=== PATIENT | female | born 1945 | race Caucasian/White ===

== ENCOUNTER 2016-06-25 10:27 | Outpatient (CLI) | payer MEDICARE, OTHER | END 2016-06-25 10:28 | disposition home or self-care (01) | DX: K80.20 Calculus of gallbladder without cholecystitis without obstruction (principal) ==

== ENCOUNTER 2016-06-27 16:23 | Outpatient (CLI) | payer MEDICARE, OTHER | END 2016-06-27 16:24 | disposition home or self-care (01) | DX: K80.20 Calculus of gallbladder without cholecystitis without obstruction (principal) ==

== ENCOUNTER 2016-11-14 13:00 | Outpatient (CLI) | payer MEDICARE, OTHER ==
--- NOTE | 2016-11-16 08:25 | DEXA Report ---
DEXA SCAN: 11/14/2016 CLINICAL INDICATION: Postmenopausal. TECHNIQUE: Dual energy x-ray absorptiometry (DXA) was performed on a [employer] system. Regions measured are the AP spine, femoral neck, and, if needed, forearm. COMPARISON: None. In accordance with the International Society for Clinical Densitometry (ISCD) guidelines, data from previous exams may be reanalyzed using current recommendations and techniques. This is done to allow a more accurate basis for comparison with the current study. FINDINGS: The data for the lumbar spine is as follows: REGION BMD (g/cm/cm) T-SCORE Z-SCORE L1 0.868 -2.1 -0.7 L2 0.850 -2.9 -1.4 L3 0.968 -1.9 -0.4 L4 1.036 -1.4 0.2 TOTAL 0.945 -2.0 -0.4 NOTE: All evaluable vertebrae are used for classification. The data for the hip is as follows: REGION BMD (g/cm/cm) T-SCORE Z-SCORE Neck 0.792 -1.8 -0.2 TOTAL 0.860 -1.2 0.2 NOTE: The femoral neck or total proximal femur, whichever is lowest, is used for classification. IMPRESSION: THE WHO CLASSIFICATION BASED ON THE INTERNATIONAL REFERENCE STANDARD IS OSTEOPENIA. THE FRACTURE RISK IS INCREASED. RECOMMENDATION: Patients with diagnosis of osteoporosis or osteopenia should have regular bone mineral density assessment. For those eligible for Medicare, routine testing is allowed once every 2 years. Testing frequency can be increased for patients who have rapidly progressing disease or for those who are receiving medical therapy to restore bone mass. COMMENT: World Health Organization (WHO) definitions for osteoporosis and osteopenia: NORMAL BMD: T-score at -1.0 or higher, fracture risk is low. OSTEOPENIA BMD: T-score between -1.0 and -2.5, fracture risk is increased. OSTEOPOROSIS BMD: T-score at -2.5 or lower, fracture risk high. National Osteoporosis Foundation recommends: 1. Obtain adequate dietary calcium (at least 1200 mg per day) and vitamin D (400 -800 international units per day). 2. Participate, as appropriate, in regular weightbearing and muscle- strengthening exercise. 3. Avoid tobacco use and reduce alcohol and caffeine intake. 4. For more detailed information see the website at www.NOF.org. MTDD
== END 2016-11-14 13:01 | disposition home or self-care (01) ==
LOC: DI 13:00
PROVIDERS: ATTEND Family Medicine
DX: M85.89 Other specified disorders of bone density and structure, multiple sites (principal)
CPT/HCPCS: 77080

== ENCOUNTER 2016-11-17 10:29 | Outpatient (CLI) | payer MEDICARE, OTHER ==
--- NOTE | 2016-11-18 13:21 | Mammography Report ---
DIGITAL SCREENING MAMMOGRAM: 11/17/2016 CLINICAL INDICATION: A 71-year-old with family history of breast cancer, history of benign biopsy fo r screening. COMPARISON: 03/2015, 01/2014, 12/2012, 11/2011, 10/2010, 10/2009, 10/2008, 08/2007, 08/2006. TECHNIQUE: Routine CC and MLO projections were obtained of the breasts. FINDINGS: The breasts again demonstrate scattered fibroglandular densities bilaterally. A few punct ate, typically benign calcifications are present. No suspicious masses, clustered microcalcification s, or regions of architectural distortion are identified. IMPRESSION: BENIGN FINDINGS. RECOMMENDATION: Routine annual screening unless otherwise clinically indicated. BIRADS CATEGORY 2 - BENIGN FINDINGS. STANDARD QUALIFYING STATEMENTS 1. This examination was reviewed with the aid of Computer-Aided Detection (CAD). 2. A negative or benign imaging report should not delay biopsy if clinically suspicious findings are present. Consider surgical consultation if warranted. More than 5% of cancers are not identified by i maging. 3. Dense breasts may obscure an underlying neoplasm. JOB #: [id number] EXT JOB #:[id number]
== END 2016-11-17 10:30 | disposition home or self-care (01) ==
LOC: DI.N 10:29
PROVIDERS: ATTEND Family Medicine
DX: Z12.31 Encounter for screening mammogram for malignant neoplasm of breast (principal); Z80.3 Family history of malignant neoplasm of breast
CPT/HCPCS: 77067

== ENCOUNTER 2017-09-07 10:51 | Outpatient (CLI) | payer MEDICARE, OTHER ==
[2017-09-07 19:06] LABS: BASOPHILS % (AUTO) 1.1 %; EOSINOPHILS # (AUTO) 0.2 10^3/uL (0.0-0.7); EOSINOPHILS % (AUTO) 5.6 %; HGB - HEMOGLOBIN 13.6 g/dL (12.0-16.0); LYMPHOCYTES # (AUTO) 1.6 10^3/uL (1.5-3.5); LYMPHOCYTES % (AUTO) 36.8 %; MEAN CORPUSCULAR HEMOGLOBIN 30.7 pg (27.0-31.0); MEAN CORPUSCULAR HGB CONC 32.4 g/dL (32.0-36.0); MEAN CORPUSCULAR VOLUME 94.6 fL (81.0-99.0); MEAN PLATELET VOLUME 9.5 fL (7.9-10.8); MONOCYTES # (AUTO) 0.4 10^3/uL (0.0-1.0); MONOCYTES % (AUTO) 9.2 %; NEUTROPHILS # (AUTO) 2.1 10^3/uL (1.5-6.6); NEUTROPHILS % (AUTO) 47.3 %; PLT - PLATELET COUNT 212 10^3/uL (130-450); RED BLOOD COUNT 4.44 10^6/uL (4.20-5.40); RED CELL DISTRIBUTION WIDTH 14.6 % (12.0-15.0); WHITE BLOOD COUNT 4.4 x10^3/uL (4.8-10.8)
[2017-09-07 19:22] LABS: ALBUMIN 4.5 g/dL (3.2-5.5); ALBUMIN/GLOBULIN RATIO 1.7 (1.0-2.2); BILIRUBIN,TOTAL 0.8 mg/dL (0.2-1.0); CALCIUM 9.1 mg/dL (8.5-10.3); CREATININE 0.7 mg/dL (0.4-1.0); TOTAL PROTEIN 7.1 g/dL (6.7-8.2)
== END 2017-09-07 10:52 ==
LOC: LAB.WCP 10:51
PROVIDERS: ATTEND Family Medicine
DX: R19.7 Diarrhea, unspecified (principal)
CPT/HCPCS: 36415; 80053; 81599; 83630; 85025; 87045; 87046; 87077; 87177; 87209; 87329; 87493

== ENCOUNTER 2018-04-03 11:15 | Outpatient (CLI) | payer MEDICARE, OTHER ==
--- NOTE | 2018-04-04 09:49 | Mammography Report ---
Reason: SCREENING MAMMO Procedure Date: 04/03/2018 Accession Number: [id number] / [id number] Procedure: MGN - Screening Mammo Dig Bilat CPT Code: FULL RESULT: EXAM: Screening Mammo Dig Bilat DATE: 04/03/2018 11:41 AM CLINICAL HISTORY: 72-year-old female with family history of breast cancer in the mother at age 90 and grandmother at age 65 with a personal history of benign right breast procedure. The patient presents for screening. TECHNIQUE: Bilateral CC and MLO views were obtained. COMPARISON: 11/17/2016, 03/16/2015, 01/22/2014, 01/01/2013. FINDINGS: The breasts demonstrate scattered fibroglandular densities bilaterally. Postprocedural changes are seen in the right breast. No suspicious masses, clustered microcalcifications, or regions of architectural distortion are identified. IMPRESSION: Benign findings RECOMMENDATION: Routine annual screening unless otherwise clinically indicated. BIRADS CATEGORY 2: Benign findings STANDARD QUALIFYING STATEMENTS: 1. This examination was reviewed with the aid of Computer-Aided Detection (CAD). 2. A negative or benign imaging report should not delay biopsy if clinically suspicious findings are present. Consider surgical consultation if warranted. More than 5% of cancers are not identified by imaging. 3. Dense breasts may obscure an underlying neoplasm. 4. This examination was reviewed without the aid of 3D breast imaging (tomosynthesis).
== END 2018-04-03 11:16 | disposition home or self-care (01) ==
LOC: DI.N 11:15
DX: Z12.31 Encounter for screening mammogram for malignant neoplasm of breast (principal); Z80.3 Family history of malignant neoplasm of breast
CPT/HCPCS: 77067

== ENCOUNTER 2018-10-12 08:00 | Outpatient (CLI) | payer MEDICARE, OTHER ==
[2018-10-12 18:46] LABS: EOSINOPHILS # (AUTO) 0.2 10^3/uL (0.0-0.7); EOSINOPHILS % (AUTO) 4.2 %; HGB - HEMOGLOBIN 13.7 g/dL (12.0-16.0); LYMPHOCYTES # (AUTO) 1.2 10^3/uL (1.5-3.5); MEAN CORPUSCULAR HGB CONC 32.7 g/dL (32.0-36.0); MEAN CORPUSCULAR VOLUME 97.6 fL (81.0-99.0); MEAN PLATELET VOLUME 9.4 fL (7.9-10.8); MONOCYTES # (AUTO) 0.3 10^3/uL (0.0-1.0); MONOCYTES % (AUTO) 7.8 %; NEUTROPHILS # (AUTO) 2.3 10^3/uL (1.5-6.6); PLT - PLATELET COUNT 191 10^3/uL (130-450); RED CELL DISTRIBUTION WIDTH 14.2 % (12.0-15.0)
[2018-10-12 19:01] LABS: ALBUMIN 4.3 g/dL (3.2-5.5); ALBUMIN/GLOBULIN RATIO 1.5 (1.0-2.2); ALKALINE PHOSPHATASE 47 IU/L (42-121); ALT ALANINE AMINOTRANSFERASE 25 IU/L (10-60); AST ASPARTATE AMINOTRANSFERASE 26 IU/L (10-42); BILIRUBIN,TOTAL 1.1 mg/dL (0.2-1.0); BUN - BLOOD UREA NITROGEN 18 mg/dL (6-20); CALCIUM 9.6 mg/dL (8.5-10.3); CARBON DIOXIDE - CO2 30 mmol/L (21-32); CHLORIDE 103 mmol/L (101-111); CHOL/HDL RATIO 3.2 (<4.4); CHOLESTEROL 202 mg/dL; CREATININE 0.8 mg/dL (0.4-1.0); GFR - MDRD 71 (>89); GLUCOSE 124 mg/dL (70-100); HDL CHOLESTEROL 63 mg/dL; LDL CHOLESTEROL,CALCULATED 113 mg/dL; LDL/HDL RATIO 1.8 (<4.4); SODIUM 145 mmol/L (135-145); TOTAL PROTEIN 7.2 g/dL (6.7-8.2); VLDL CHOLESTEROL 26 mg/dL
[2018-10-12 19:15] LABS: HB2 TOTAL 14.5 g/dL; HEMOGLOBIN A1C 0.61 g/dL
== END 2018-10-12 23:59 | disposition home or self-care (01) ==
LOC: LAB.WCP 08:00
PROVIDERS: ATTEND Family Medicine
DX: E11.9 Type 2 diabetes mellitus without complications (principal)
CPT/HCPCS: 36415; 80053; 80061; 83036; 83721; 84443; 85025

== ENCOUNTER 2018-10-29 08:00 | Outpatient (CLI) | payer MEDICARE, OTHER ==
[2018-10-29 19:12] LABS: RHEUMATOID FACTOR NEGATIVE (Negative)
[2018-10-29 19:22] LABS: CRP - C-REACTIVE PROTEIN < 1.0 mg/dL (0-1.0); URIC ACID 8.6 mg/dL (2.6-7.2)
== END 2018-10-29 23:59 | disposition home or self-care (01) ==
LOC: LAB.WCP 08:00
PROVIDERS: ATTEND Family Medicine
DX: M25.50 Pain in unspecified joint (principal)
CPT/HCPCS: 36415; 84550; 85651; 86140; 86200; 86430

== ENCOUNTER 2019-02-19 10:35 | Outpatient (CLI) | payer MEDICARE, OTHER ==
[2019-02-19 10:46] LABS: BASOPHILS % (AUTO) 0.4 %; EOSINOPHILS # (AUTO) 0.1 10^3/uL (0.0-0.7); EOSINOPHILS % (AUTO) 1.3 %; HGB - HEMOGLOBIN 14.5 g/dL (12.0-16.0); LYMPHOCYTES # (AUTO) 1.5 10^3/uL (1.5-3.5); LYMPHOCYTES % (AUTO) 27.4 %; MEAN CORPUSCULAR HEMOGLOBIN 31.5 pg (27.0-31.0); MEAN CORPUSCULAR HGB CONC 32.3 g/dL (32.0-36.0); MEAN CORPUSCULAR VOLUME 97.4 fL (81.0-99.0); MEAN PLATELET VOLUME 10.2 fL (7.9-10.8); MONOCYTES # (AUTO) 0.4 10^3/uL (0.0-1.0); MONOCYTES % (AUTO) 7.3 %; NEUTROPHILS # (AUTO) 3.5 10^3/uL (1.5-6.6); NEUTROPHILS % (AUTO) 63.4 %; PLT - PLATELET COUNT 222 10^3/uL (130-450); RED BLOOD COUNT 4.61 10^6/uL (4.20-5.40); WHITE BLOOD COUNT 5.5 x10^3/uL (4.8-10.8)
[2019-02-19 11:01] LABS: ALBUMIN 4.7 g/dL (3.2-5.5); ALBUMIN/GLOBULIN RATIO 1.7 (1.0-2.2); CALCIUM 9.5 mg/dL (8.5-10.3); CREATININE 0.8 mg/dL (0.4-1.0); TOTAL PROTEIN 7.4 g/dL (6.7-8.2)
== END 2019-02-19 10:36 | disposition home or self-care (01) ==
LOC: LAB 10:35
PROVIDERS: ATTEND Family Medicine
DX: R10.32 Left lower quadrant pain (principal); K80.20 Calculus of gallbladder without cholecystitis without obstruction; K83.8 Other specified diseases of biliary tract
CPT/HCPCS: 36415; 74177; 80053; 85025; Q9967

== ENCOUNTER 2019-02-19 10:46 | Outpatient (CLI) | payer MEDICARE, OTHER ==
[2019-02-19] MEDS ORDERED: IOVERSOL 320 50 ML VIAL ONE (11:13)
[2019-02-19] MEDS ORDERED: IOVERSOL 320 100 ML VIAL IVP ONE ×2 (11:13→13:39)
--- NOTE | 2019-02-19 13:24 | CT Report ---
Reason: ABDOMINAL PAIN, LLQ Procedure Date: 02/19/2019 Accession Number: [id number] / [id number] Procedure: CT - Abdomen/Pelvis W CPT Code: FULL RESULT: EXAM: CT ABDOMEN AND PELVIS EXAM DATE: 02/19/2019 12:42 PM. CLINICAL HISTORY: Abdominal pain, LLQ. COMPARISONS: ABDOMEN COMPLETE 06/27/2016 4:56 PM. TECHNIQUE: Routine helical CT imaging was performed through the abdomen and pelvis. IV contrast: Optiray 320 100 mL. Enteric contrast: No. Reconstructions: Coronal and sagittal. In accordance with CT protocol optimization, one or more of the following dose reduction techniques were utilized for this exam: automated exposure control, adjustment of mA and/or KV based on patient size, or use of iterative reconstructive technique. FINDINGS: Lung Bases: Unremarkable. Liver: Normal. No masses. Gallbladder/Bile Ducts: 8 mm gallstone noted in the gallbladder neck. There is no gallbladder wall thickening or pericholecystic inflammation. There is dilatation of the extrahepatic common bile duct at 9 mm with abrupt transition at the ampulla. No intrahepatic ductal dilatation. Spleen: Normal. Pancreas: Normal. Adrenal Glands: Normal. Kidneys: 8 mm water density cyst of the mid pole left kidney. No stones or hydronephrosis. No contour deforming masses. Peritoneal Cavity/Bowel: Colonic diverticulosis without CT evidence of diverticulitis.. No free fluid, free air or adenopathy. No masses or acute inflammatory process. The appendix is not specifically visualized but there is no inflammatory change in the right lower quadrant. Pelvic Organs: Normal. The bladder and visualized pelvic organs are within normal limits. Vasculature: No aneurysms or other significant abnormality. Bones: Mild grade 1 anterolisthesis of L4 on L5 with bilateral facet arthrosis. Other: None. IMPRESSION: 1. Cholelithiasis without CT evidence of cholecystitis. 2. Dilatation of the extrahepatic common bile duct to 9 mm. Etiology is not appreciated on this exam but is new compared to prior abdominal ultrasound of 2017. 3. No appreciable etiology for left lower quadrant abdominal pain. RADIA The call report notification system was initiated by Dr. Dameon Kapoor at 01:21 PM on 02/19/2019. ADDENDUM: 02/19/19 13:49 The above call report findings were discussed with Leonie Mcclure by Dr. Dameon Kapoor at 01:49 PM on 02/19/2019.
[2019-02-19] MEDS ORDERED: IOVERSOL 320 50 ML VIAL PO ONE (13:39)
== END 2019-02-19 10:47 | disposition home or self-care (01) ==
LOC: DI 10:46
PROVIDERS: ATTEND Family Medicine
DX: R10.32 Left lower quadrant pain (principal); K80.20 Calculus of gallbladder without cholecystitis without obstruction; K83.8 Other specified diseases of biliary tract
CPT/HCPCS: 74177; Q9967

== ENCOUNTER 2019-04-23 08:00 | Outpatient (CLI) | payer MEDICARE, OTHER ==
[2019-04-23 18:54] LABS: HEMOGLOBIN A1C 0.59 g/dL
[2019-04-23 18:56] LABS: ALBUMIN 4.5 g/dL (3.2-5.5); ALBUMIN/GLOBULIN RATIO 1.6 (1.0-2.2); ALKALINE PHOSPHATASE 41 IU/L (42-121); ALT ALANINE AMINOTRANSFERASE 25 IU/L (10-60); AST ASPARTATE AMINOTRANSFERASE 23 IU/L (10-42); BILIRUBIN,TOTAL 1.1 mg/dL (0.2-1.0); BUN - BLOOD UREA NITROGEN 20 mg/dL (6-20); CALCIUM 9.4 mg/dL (8.5-10.3); CARBON DIOXIDE - CO2 34 mmol/L (21-32); CHLORIDE 100 mmol/L (101-111); CREATININE 0.7 mg/dL (0.4-1.0); GFR - MDRD 82 (>89); GLUCOSE 121 mg/dL (70-100); SODIUM 141 mmol/L (135-145); TOTAL PROTEIN 7.3 g/dL (6.7-8.2); URIC ACID 8.1 mg/dL (2.6-7.2)
[2019-04-23 19:23] LABS: CRP - C-REACTIVE PROTEIN < 1.0 mg/dL (0-1.0)
[2019-04-24 14:18] LABS: HEPATITIS C ANTIBODY NON-REACTIVE (NON-REACTIVE)
== END 2019-04-23 23:59 | disposition home or self-care (01) ==
LOC: LAB.WCP 08:00
PROVIDERS: ATTEND Family Medicine
DX: E11.9 Type 2 diabetes mellitus without complications (principal); M25.50 Pain in unspecified joint; Z11.59 Encounter for screening for other viral diseases
CPT/HCPCS: 36415; 80053; 83036; 84550; 85651; 86140; 86803

== ENCOUNTER 2019-07-18 07:30 | Outpatient (CLI) | payer MEDICARE, OTHER ==
--- NOTE | 2019-07-18 16:23 | MRI Report ---
Reason: BACK PAIN THORACIC REGION, CHOLELITHIASIS Procedure Date: 07/18/2019 Accession Number: [id number] / [id number] Procedure: MRI - MRCP W/O CPT Code: Final Report FULL RESULT: EXAM: MR ABDOMEN WITHOUT CONTRAST (MR CHOLANGIOPANCREATOGRAPHY) EXAM DATE: 07/18/2019 09:35 AM. CLINICAL HISTORY: Back pain thoracic region, cholelithiasis. New extrahepatic biliary ductal dilation on February [address] CT. COMPARISON: ABDOMEN/PELVIS W/ 02/19/2019 12:41 PM. TECHNIQUE: Multiplanar breath-hold T1 and T2 sequences obtained through the abdomen on an MR scanner. Dedicated 2D and 3D MRCP sequences obtained through the biliary and pancreatic ducts. No intravenous contrast given. FINDINGS: Lung Bases: The lung bases are clear. Liver: The liver has normal size, morphology and signal. No evidence of mass. The intrahepatic bile ducts appear normal. CBD: The extrahepatic ducts appear normal. The CBD is 7 mm in diameter. Gallbladder: The gallbladder is partially distended and appears normal with no wall thickening or stone. Pancreas: The pancreas appears normal with no mass. The pancreatic duct measures 2 mm in diameter and appears normal with no stone or stricture. Spleen: The spleen appears normal. Kidneys and Adrenals: The kidneys appear normal with no mass or hydronephrosis. There are bilateral simple appearing cysts in the kidneys. The adrenals appear normal. Bowel: The small bowel and colon appear normal with no inflammation or obstruction. Retroperitoneum: The retroperitoneal structures appear normal with no mass or lymphadenopathy. IMPRESSION: Normal MRCP. RADIA
== END 2019-07-18 07:31 | disposition home or self-care (01) ==
LOC: DI 07:30
PROVIDERS: ATTEND Family Medicine
DX: M54.6 Pain in thoracic spine (principal)
CPT/HCPCS: 74181

== ENCOUNTER 2020-03-04 12:39 | Outpatient (CLI) | payer MEDICARE, OTHER ==
[2020-03-04 18:01] LABS: BASOPHILS % (AUTO) 0.5 %; EOSINOPHILS # (AUTO) 0.1 10^3/uL (0.0-0.7); EOSINOPHILS % (AUTO) 1.6 %; HGB - HEMOGLOBIN 13.9 g/dL (12.0-16.0); LYMPHOCYTES # (AUTO) 1.4 10^3/uL (1.5-3.5); LYMPHOCYTES % (AUTO) 25.4 %; MEAN CORPUSCULAR HGB CONC 31.7 g/dL (32.0-36.0); MEAN CORPUSCULAR VOLUME 97.8 fL (81.0-99.0); MEAN PLATELET VOLUME 11.3 fL (7.9-10.8); MONOCYTES # (AUTO) 0.6 10^3/uL (0.0-1.0); MONOCYTES % (AUTO) 10.6 %; NEUTROPHILS # (AUTO) 3.4 10^3/uL (1.5-6.6); NEUTROPHILS % (AUTO) 61.5 %; PLT - PLATELET COUNT 225 10^3/uL (130-450); RED BLOOD COUNT 4.49 10^6/uL (4.20-5.40); RED CELL DISTRIBUTION WIDTH 13.3 % (12.0-15.0); WHITE BLOOD COUNT 5.6 x10^3/uL (4.8-10.8)
[2020-03-04 18:23] LABS: MICROALBUM/CREATININE RATIO,UR 1.8 ug/mg (<30.0); MICROALBUMIN,URINE 0.3 mg/dL (0-300.0)
[2020-03-04 18:34] LABS: ALBUMIN 4.4 g/dL (3.2-5.5); ALBUMIN/GLOBULIN RATIO 1.5 (1.0-2.2); ALKALINE PHOSPHATASE 47 IU/L (42-121); ALT ALANINE AMINOTRANSFERASE 21 IU/L (10-60); AST ASPARTATE AMINOTRANSFERASE 19 IU/L (10-42); BUN - BLOOD UREA NITROGEN 21 mg/dL (6-20); CALCIUM 9.4 mg/dL (8.5-10.3); CARBON DIOXIDE - CO2 32 mmol/L (21-32); CHLORIDE 100 mmol/L (101-111); CHOL/HDL RATIO 3.1 (<4.4); CHOLESTEROL 214 mg/dL; CREATININE 0.8 mg/dL (0.4-1.0); GLUCOSE 103 mg/dL (70-100); HDL CHOLESTEROL 69 mg/dL; LDL CHOLESTEROL,CALCULATED 120 mg/dL; LDL/HDL RATIO 1.7 (<4.4); SODIUM 140 mmol/L (135-145); TOTAL PROTEIN 7.3 g/dL (6.7-8.2); URIC ACID 7.8 mg/dL (2.6-7.2); VLDL CHOLESTEROL 25 mg/dL
[2020-03-04 20:02] LABS: HEMOGLOBIN A1c% 5.7 % (4.27-6.07)
== END 2020-03-04 23:59 | disposition home or self-care (01) ==
LOC: LAB.WCP 12:39
PROVIDERS: ATTEND Family Medicine
DX: I10 Essential (primary) hypertension (principal); E78.5 Hyperlipidemia, unspecified; E11.9 Type 2 diabetes mellitus without complications; M10.9 Gout, unspecified
CPT/HCPCS: 36415; 80053; 80061; 82043; 82570; 83036; 83721; 84550; 85025

== ENCOUNTER 2020-03-09 12:25 | Outpatient (CLI) | payer MEDICARE, OTHER ==
--- NOTE | 2020-03-10 15:48 | Mammography Report ---
BILATERAL DIGITAL SCREENING MAMMOGRAM 3D/2D: 03/09/2020 CLINICAL: Family history of breast cancer. Routine screening. Comparison is made to exams dated: 04/03/2018 mammogram and 11/17/2016 mammogram - [facility]. There are scattered fibroglandular elements in both breasts. No significant masses, calcifications, or other findings are seen in either breast. There has been no significant interval change. IMPRESSION: NEGATIVE There is no mammographic evidence of malignancy. A 1 year screening mammogram is recommended. This exam was interpreted at Station ID: [id number]. NOTE: For mammograms, a report in lay terms will be sent to the patient. Approximately 15% of breast malignancies will not be visualized mammographically. In the management of a palpable breast mass, a negative mammogram must not discourage biopsy of a clinically suspicious lesion. Electronically Signed By: Ryder Cesar M.D. ar/penrad:03/09/2020 13:59:20 ACR BI-RADS Category 1: Negative 3341F PARENCHYMAL PATTERN: (A) - The breast(s) demonstrate(s) scattered fibroglandular densities. BI-RADS CATEGORY: (1) - 1 RECOMMENDATION: (ANNUAL) - Recommend routine annual screening mammography. [id number] 1 year screening LATERALITY: (B)
== END 2020-03-09 12:26 | disposition home or self-care (01) ==
LOC: DI.N 12:25
DX: Z12.31 Encounter for screening mammogram for malignant neoplasm of breast (principal); Z80.3 Family history of malignant neoplasm of breast
CPT/HCPCS: 77063; 77067

== ENCOUNTER 2020-09-21 10:14 | Outpatient (CLI) | payer MEDICARE, OTHER ==
[2020-09-21 18:12] LABS: BASOPHILS % (AUTO) 0.7 %; EOSINOPHILS # (AUTO) 0.1 10^3/uL (0.0-0.7); EOSINOPHILS % (AUTO) 2.3 %; HCT - HEMATOCRIT 44.3 % (37.0-47.0); HGB - HEMOGLOBIN 13.7 g/dL (12.0-16.0); LYMPHOCYTES # (AUTO) 1.9 10^3/uL (1.5-3.5); LYMPHOCYTES % (AUTO) 31.9 %; MEAN CORPUSCULAR HEMOGLOBIN 31.4 pg (27.0-31.0); MEAN CORPUSCULAR HGB CONC 30.9 g/dL (32.0-36.0); MEAN CORPUSCULAR VOLUME 101.6 fL (81.0-99.0); MEAN PLATELET VOLUME 11.7 fL (7.9-10.8); MONOCYTES # (AUTO) 0.5 10^3/uL (0.0-1.0); MONOCYTES % (AUTO) 8.9 %; NEUTROPHILS # (AUTO) 3.3 10^3/uL (1.5-6.6); NEUTROPHILS % (AUTO) 55.9 %; PLT - PLATELET COUNT 236 10^3/uL (130-450); RED BLOOD COUNT 4.36 10^6/uL (4.20-5.40); RED CELL DISTRIBUTION WIDTH 13.7 % (12.0-15.0)
[2020-09-21 18:55] LABS: ALBUMIN 4.2 g/dL (3.2-5.5); ALBUMIN/GLOBULIN RATIO 1.4 (1.0-2.2); ALKALINE PHOSPHATASE 47 IU/L (42-121); ALT ALANINE AMINOTRANSFERASE 27 IU/L (10-60); AST ASPARTATE AMINOTRANSFERASE 26 IU/L (10-42); BILIRUBIN,TOTAL 0.5 mg/dL (0.2-1.0); BUN - BLOOD UREA NITROGEN 25 mg/dL (6-20); CALCIUM 9.3 mg/dL (8.5-10.3); CARBON DIOXIDE - CO2 31 mmol/L (21-32); CHLORIDE 102 mmol/L (101-111); CHOLESTEROL 222 mg/dL; CREATININE 0.8 mg/dL (0.4-1.0); GFR - MDRD 70 (>89); GLUCOSE 103 mg/dL (70-100); HDL CHOLESTEROL 75 mg/dL; LDL CHOLESTEROL,CALCULATED 124 mg/dL; LDL/HDL RATIO 1.7 (<4.4); POTASSIUM 4.2 mmol/L (3.5-5.0); SODIUM 142 mmol/L (135-145); TOTAL PROTEIN 7.1 g/dL (6.7-8.2); TRIGLYCERIDES 117 mg/dL; VLDL CHOLESTEROL 23 mg/dL
[2020-09-21 19:07] LABS: CREATININE,URINE 98.2 mg/dL; MICROALBUMIN,URINE 0.2 mg/dL (0-300.0)
[2020-09-21 19:08] LABS: THYROID STIMULATING HORMONE 2.95 uIU/mL (0.34-5.60)
[2020-09-21 20:04] LABS: ESTIMATED AVERAGE GLUCOSE 123 mg/dL (70-100); HEMOGLOBIN A1c% 5.9 % (4.27-6.07)
== END 2020-09-21 23:59 | disposition home or self-care (01) ==
LOC: LAB.WCP 10:14
PROVIDERS: ATTEND Family Medicine
DX: E11.9 Type 2 diabetes mellitus without complications (principal)
CPT/HCPCS: 36415; 80053; 80061; 82043; 82570; 83036; 83721; 84443; 85025

== ENCOUNTER 2020-11-12 08:42 | Emergency (ER) | payer MEDICARE, OTHER ==
[2020-11-12] MEDS ORDERED: CHERRY SYRUP 10 ML UDC PO ONE (09:07)
[2020-11-12] MEDS ORDERED: DEXAMETHASONE 10 MG/ML VIAL PO STA (09:07)
[2020-11-12] MEDS ORDERED: KETOROLAC 60 MG/2 ML VIAL IM STA (09:07)
--- NOTE | 2020-11-12 09:10 | ED Physician Documentation ---
PD HPI CHEST PAIN - Stated complaint Stated Complaint: BACK/CHEST PX - Chief complaint Chief Complaint: Back Pain - History obtained from History obtained from: Patient - History of Present Illness Timing - onset: How many days ago (4) Timing - onset during: Light activity Timing - duration: Days (4) Timing - details: Gradual onset, Still present Quality: Pressure, Sharp, Pain Location: Substernal, Left chest Radiation: Back Worsened by: Other (coughing) Associated symptoms: Cough (is usual morning cough). No: Shortness of air, Diaphoresis, Nausea, Vomiting, Feeling faint / dizzy, General Weakness, Palpitations Similar symptoms before: Has not had sx before Recently seen: Not recently seen - Additional information Additional information: Previously well 75-year-old left-handed female has been out working in her garden she has developed some pain in her left rhomboid area and she has now developed some pain with cough in her anterior chest. She feels like there is some pressure on her chest and after 4 days she has come to the emergency department for evaluation. She denies any fever she does have a morning cough this is not changed. Review of Systems Constitutional: denies: Fever Eyes: denies: Decreased vision, Photophobia Ears: denies: Ear pain Nose: reports: Congestion. denies: Rhinorrhea / runny nose Throat: denies: Sore throat Cardiac: reports: Chest pain / pressure. denies: Palpitations, Pedal edema, Calf pain Respiratory: reports: Cough. denies: Dyspnea, Wheezing GI: denies: Abdominal Pain, Nausea, Vomiting : denies: Dysuria, Frequency PD PAST MEDICAL HISTORY - Past Medical History Past Medical History: Yes Cardiovascular: Hypertension Respiratory: None Endocrine/Autoimmune: None GI: None WOODS RIDER: None : None HEENT: None Psych: None Musculoskeletal: Other Derm: None - Past Surgical History Past Surgical History: Yes General: Appendectomy /WOODS RIDER: Dilation and currettage HEENT: Tonsil/Adenoidectomy - Present Medications Home Medications: Ambulatory Orders Medication Instructions Recorded Confirmed Amitriptyline [Elavil] 25 mg PO QPM 02/26/14 11/12/20 Metoprolol Tartrate 50 mg PO BID 02/26/14 11/12/20 Simvastatin [Zocor] 40 mg PO DAILY 02/26/14 11/12/20 hydroCHLOROthiazide [Hydrodiuril] 25 mg PO DAILY 12/07/15 11/12/20 Aspirin 81 mg PO DAILY 03/09/17 11/12/20 Calcium Carbonate [Calcium] 1 tab PO DAILY 11/12/20 11/12/20 Cholecalciferol (Vitamin D3) 1 tab PO DAILY 11/12/20 11/12/20 [Vitamin D3] Cyclobenzaprine [Flexeril] 10 mg PO Q6HR PRN 11/12/20 11/12/20 Magnesium 250 mg PO DAILY 11/12/20 11/12/20 Multivitamin 1 tab PO DAILY 11/12/20 11/12/20 - Allergies Allergies/Adverse Reactions: Allergies Allergy/AdvReac Type Severity Reaction Status Date / Time gluten Allergy Cramps Verified 11/12/20 08:50 morphine Allergy Emesis Verified 11/12/20 08:50 - Social History Does the pt smoke?: No Smoking Status: Never smoker Does the pt drink ETOH?: Yes Does the pt have substance abuse?: No - Immunizations Immunizations are current?: Yes Immunizations: TDAP current <10years - POLST Patient has POLST: No PD ED PE NORMAL - Vitals Vital signs reviewed: Yes (mild hypertension ) - General General: Alert and oriented X 3, No acute distress, Well developed/nourished - HEENT HEENT: Atraumatic, PERRL, EOMI - Neck Neck: Supple, no meningeal sign, No bony TTP - Cardiac Cardiac: RRR, No murmur - Respiratory Respiratory: No respiratory distress, Clear bilaterally, Other (no anterior chest wall tenderness) - Abdomen Abdomen: Soft, Non tender - Back Back: No CVA TTP, No spinal TTP - Derm Derm: Normal color, Warm and dry, No rash - Extremities Extremities: No deformity, No edema - Neuro Neuro: Alert and oriented X 3, 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, No motor deficit, No sensory deficit, Normal speech Eye Opening: Spontaneous Motor: Obeys Commands Verbal: Oriented GCS Score: 15 - Psych Psych: Normal mood, Normal affect Results - Vitals Vitals: Vital Signs - 24 hr 11/12/20 08:46 Temperature 36.3 C L Heart Rate 67 Respiratory 17 Rate Blood Pressure 136/68 H O2 Saturation 98 Oxygen O2 Source Room air - EKG (time done) 0937 Rate: Rate (enter#) (54) Rhythm: LAE [place]: LAD Ischemia: Non specific changes (T-wave inversions) Compare to prior EKG: Unchanged from prior EKG (SPT 06-21-2019 no changes) Computer interpretation: Agree with computer - Labs Labs: Laboratory Tests 11/12/20 11/12/20 11/12/20 09:31 09:31 09:31 WBC 4.9 RBC 4.26 Hgb 13.5 Hct 41.4 MCV 97.2 MCH 31.7 H MCHC 32.6 RDW 13.1 Plt Count 214 MPV 10.3 Neut # (Auto) 2.7 Lymph # (Auto) 1.6 Howard # (Auto) 0.5 Eos # (Auto) 0.1 Baso # (Auto) 0.0 Absolute Nucleated RBC 0.00 Nucleated RBC % 0.0 Sodium 139 Potassium 3.7 Chloride 99 L Carbon Dioxide 31 Anion Gap 9.0 BUN 27 H Creatinine 0.7 Estimated GFR (MDRD) 82 L Glucose 123 H Calcium 9.0 Total Bilirubin 1.1 H AST 19 ALT 18 Alkaline Phosphatase 46 Troponin I High Sens 3.8 Total Protein 7.2 Albumin 4.3 Globulin 2.9 Albumin/Globulin Ratio 1.5 Lipase 27 - Rads (name of study) chest 2 view Radiology: Prelim report reviewed (Impression: No acute pulmonary process.), EMP read indepedently, See rad report Procedures - IVC sono (time) 0900 Bedside IVC sono: IVC measures (cm) (1.65), Euvolemia PD MEDICAL DECISION MAKING - ED course Complexity details: reviewed results, re-evaluated patient, considered differential, d/w patient ED course: 75-year-old female reports to the emergency department with left-sided chest pain she is in pain in the rhomboid muscle area and she has some pain in the anterior chest wall when she coughs. She has negative findings on chest x-ray and physical exam she has pain over the rhomboid area and she is left-handed and has been weeding. All injury consistent. The patient is administered dexamethasone and Toradol with improvement. Her diagnostic work-up is otherwise unremarkable. She was not found to be dehydrated on interrogation the inferior vena cava. The patient has refused narcotic pain reliever she has some Flexeril at home and she uses CBD oil. Departure - Departure Disposition: Home, Self Care Clinical Impression: Rhomboid muscle pain Condition: Stable Instructions: ED Spasm Back No Trauma Follow-Up: Leonie Mcclure DO [Primary Care Provider] -
[2020-11-12 09:36] LABS: BASOPHILS % (AUTO) 0.6 %; EOSINOPHILS # (AUTO) 0.1 10^3/uL (0.0-0.7); EOSINOPHILS % (AUTO) 2.9 %; HCT - HEMATOCRIT 41.4 % (37.0-47.0); HGB - HEMOGLOBIN 13.5 g/dL (12.0-16.0); LYMPHOCYTES # (AUTO) 1.6 10^3/uL (1.5-3.5); LYMPHOCYTES % (AUTO) 32.2 %; MEAN CORPUSCULAR HEMOGLOBIN 31.7 pg (27.0-31.0); MEAN CORPUSCULAR HGB CONC 32.6 g/dL (32.0-36.0); MEAN CORPUSCULAR VOLUME 97.2 fL (81.0-99.0); MEAN PLATELET VOLUME 10.3 fL (7.9-10.8); MONOCYTES # (AUTO) 0.5 10^3/uL (0.0-1.0); MONOCYTES % (AUTO) 10.2 %; NEUTROPHILS # (AUTO) 2.7 10^3/uL (1.5-6.6); NEUTROPHILS % (AUTO) 53.9 %; PLT - PLATELET COUNT 214 10^3/uL (130-450); RED BLOOD COUNT 4.26 10^6/uL (4.20-5.40); RED CELL DISTRIBUTION WIDTH 13.1 % (12.0-15.0); WHITE BLOOD COUNT 4.9 x10^3/uL (4.8-10.8)
--- NOTE | 2020-11-12 09:36 | XRAY Report ---
PROCEDURE: Chest 2 View X-Ray INDICATIONS: chest pain TECHNIQUE: 2 view(s) of the chest. COMPARISON: None. FINDINGS: Surgical changes and devices: Right shoulder arthroplasty. Lungs and pleura: No pleural effusions or pneumothorax. Lungs are clear. Mediastinum: Mediastinal contours are normal. Heart size is normal. Bones and chest wall: No suspicious bony abnormalities. Soft tissues appear unremarkable. IMPRESSION: No acute pulmonary process. Reviewed by: Evon Stein MD on 11/12/2020 9:35 AM PDT Approved by: Evon Stein MD on 11/12/2020 9:35 AM PDT Station ID: [id number]
[2020-11-12 09:48] LABS: ALBUMIN 4.3 g/dL (3.2-5.5); ALBUMIN/GLOBULIN RATIO 1.5 (1.0-2.2); BILIRUBIN,TOTAL 1.1 mg/dL (0.2-1.0); CREATININE 0.7 mg/dL (0.4-1.0); POTASSIUM 3.7 mmol/L (3.5-5.0); TOTAL PROTEIN 7.2 g/dL (6.7-8.2)
[2020-11-12 10:23] VITALS: BP 113/73
== END 2020-11-12 10:22 | disposition home or self-care (01) ==
LOC: ED 08:42
DX: M54.6 Pain in thoracic spine (principal); I10 Essential (primary) hypertension
CPT/HCPCS: 36415; 71046; 80053; 83690; 84484; 85025; 93005; 96372; 99284; A9270

== ENCOUNTER 2021-02-12 08:00 | Outpatient (CLI) | payer MEDICARE, OTHER ==
[2021-02-12 17:42] LABS: BASOPHILS % (AUTO) 0.7 %; EOSINOPHILS # (AUTO) 0.2 10^3/uL (0.0-0.7); EOSINOPHILS % (AUTO) 3.2 %; HGB - HEMOGLOBIN 13.2 g/dL (12.0-16.0); LYMPHOCYTES # (AUTO) 1.9 10^3/uL (1.5-3.5); LYMPHOCYTES % (AUTO) 34.3 %; MEAN CORPUSCULAR HEMOGLOBIN 31.1 pg (27.0-31.0); MEAN CORPUSCULAR HGB CONC 31.4 g/dL (32.0-36.0); MEAN CORPUSCULAR VOLUME 98.8 fL (81.0-99.0); MEAN PLATELET VOLUME 11.6 fL (7.9-10.8); MONOCYTES # (AUTO) 0.5 10^3/uL (0.0-1.0); MONOCYTES % (AUTO) 9.2 %; NEUTROPHILS % (AUTO) 52.2 %; PLT - PLATELET COUNT 229 10^3/uL (130-450); RED BLOOD COUNT 4.25 10^6/uL (4.20-5.40); RED CELL DISTRIBUTION WIDTH 13.1 % (12.0-15.0); WHITE BLOOD COUNT 5.7 x10^3/uL (4.8-10.8)
[2021-02-12 18:23] LABS: ALBUMIN 4.1 g/dL (3.2-5.5); ALBUMIN/GLOBULIN RATIO 1.4 (1.0-2.2); BILIRUBIN,TOTAL 0.6 mg/dL (0.2-1.0); CALCIUM 9.3 mg/dL (8.5-10.3); CREATININE 0.8 mg/dL (0.4-1.0); POTASSIUM 4.1 mmol/L (3.5-5.0)
== END 2021-02-12 23:59 | disposition home or self-care (01) ==
LOC: LAB.WCP 08:00
PROVIDERS: ATTEND Family Medicine
DX: R10.9 Unspecified abdominal pain (principal)
CPT/HCPCS: 36415; 80053; 83690; 85025

== ENCOUNTER 2021-02-15 10:00 | Outpatient (CLI) | payer MEDICARE, OTHER ==
[2021-02-15 18:52] LABS: H. PYLORIS ANTIGEN STL NEGATIVE (Negative)
== END 2021-02-15 23:59 | disposition home or self-care (01) ==
LOC: LAB.WCP 10:00
PROVIDERS: ATTEND Family Medicine
DX: R10.9 Unspecified abdominal pain (principal)
CPT/HCPCS: 87338

== ENCOUNTER 2021-02-21 08:02 | Outpatient (CLI) | payer MEDICARE, OTHER ==
--- NOTE | 2021-02-21 14:07 | Ultrasound Report ---
PROCEDURE: Abdomen Complete INDICATIONS: ABD PAIN, GASTRITIS TECHNIQUE: Real-time scanning was performed of the abdominal and retroperitoneal organs, with image documentatio n. COMPARISON: Ultrasound 06/27/2016. Correlation is also made with MRCP 07/18/[address] 02/19/2019 FINDINGS: Liver: The liver demonstrates normal size. The liver demonstrates moderately increased echogenicit y, which limits ultrasound sensitivity for detection of masses. Gallbladder: A mobile gallstone is seen and measures up to 19 mm. The gallbladder wall does not appea r thickened. There is no specific pericholecystic fluid. The sonographic Bo's sign is negative. Biliary ducts: On the cine images, there are 2 nonvascular channel seen at the expected location of t he common bile duct. One of these measures up to 8 mm and the second measures up to 6 mm. Pancreas: Visualized portions of the pancreas are sonographically normal. Spleen: Spleen is normal in size and homogeneous in echotexture. Kidneys: Kidneys are normal in size and echotexture. Right kidney measures 10.8 cm long; left kidne y measures 10.7 cm long. No hydronephrosis or nephrolithiasis. No solid masses. Aorta: Visualized aorta is normal in caliber at less than 3 cm. Iliacs: Proximal common iliac arteries are normal in caliber at less than 2.5 cm. IVC: Intrahepatic inferior vena cava is patent. Miscellaneous: No free abdominal fluid. IMPRESSION: A mobile gallstone is again seen, without additional sonographic signs of cholecystitis. Increased liver echogenicity is seen. This is nonspecific, yet it is most commonly attributed to fatt y infiltration. Two nonvascular channels are seen at the expected location of the common bile duct. On the cine image s, this has the appearance of a duplicated common bile duct. However, on prior MRCP only one common b ile duct can be seen. Differential diagnosis includes a dilated pancreatic duct and potentially a thr ombosed hepatic vessel. If clinically appropriate, please consider a follow-up MRCP for further evalu ation. Reviewed by: Danielito Lima MD on 02/21/2021 1:06 PM YOUSIF Approved by: Danielito Lima MD on 02/21/2021 1:06 PM YOUSIF Station ID: [id number]
== END 2021-02-21 08:03 | disposition home or self-care (01) ==
LOC: DI 08:02
PROVIDERS: ATTEND Family Medicine
DX: R10.9 Unspecified abdominal pain (principal); K29.70 Gastritis, unspecified, without bleeding; K80.20 Calculus of gallbladder without cholecystitis without obstruction; R93.2 Abnormal findings on diagnostic imaging of liver and biliary tract; R93.5 Abnormal findings on diagnostic imaging of other abdominal regions, including retroperitoneum

== ENCOUNTER 2021-03-03 09:20 | Outpatient (CLI) | payer MEDICARE, OTHER ==
--- NOTE | 2021-03-04 09:55 | Mammography Report ---
BILATERAL DIGITAL SCREENING MAMMOGRAM 3D/2D: 03/03/2021 CLINICAL: Family history of breast cancer. Routine screening. Comparison is made to exams dated: 03/09/2020 mammogram, 04/03/2018 mammogram, 11/17/2016 mammogram, 05/16/2014 mammogram, 01/22/2014 mammogram, and 01/03/2013 mammogram - [facility]. The re are scattered fibroglandular elements in both breasts. No significant masses, calcifications, or other findings are seen in either breast. There has been no significant interval change. IMPRESSION: NEGATIVE There is no mammographic evidence of malignancy. A 1 year screening mammogram is recommended. This exam was interpreted at Station ID: [id number]. NOTE: For mammograms, a report in lay terms will be sent to the patient. Approximately 15% of breast malignancies will not be visualized mammographically. In the management of a palpable breast mass, a negative mammogram must not discourage biopsy of a clinically suspicious lesion. Electronically Signed By: Jordan Melgoza acr/penrad:03/03/2021 10:10:47 ACR BI-RADS Category 1: Negative 3341F PARENCHYMAL PATTERN: (A) - The breast(s) demonstrate(s) scattered fibroglandular densities. BI-RADS CATEGORY: (1) - 1 RECOMMENDATION: (ANNUAL) - Recommend routine annual screening mammography. [id number] 1 year screening LATERALITY: (B)
== END 2021-03-03 09:21 | disposition home or self-care (01) ==
LOC: DI.N 09:20
DX: Z12.31 Encounter for screening mammogram for malignant neoplasm of breast (principal); Z80.3 Family history of malignant neoplasm of breast

== ENCOUNTER 2021-03-04 08:13 | Outpatient (CLI) | payer MEDICARE, OTHER ==
--- NOTE | 2021-03-04 15:07 | MRI Report ---
PROCEDURE: Abdomen W/O INDICATIONS: ABD PAIN TECHNIQUE: Coronal ultra fast SE through the abdomen, axial 2-D spoiled GE in- and [id number], and breath-hold T2 FSE with fat saturation through the biliary system and pancreas. Oblique coronal and axial thin- slice ultra fast SE, radial thick-slab ultra fast SE centered on the extrahepatic bile ducts. COMPARISON: MRCP 07/18/2019, CT abdomen pelvis 02/19/2019 FINDINGS: Image quality: There is motion artifact slightly limiting evaluation. Pancreas and biliary system: There is a dependent gallstone measuring up to 1.7 cm in the gallbladde r without associated wall thickening or pericholecystic fluid. No intrahepatic biliary ductal dilatat ion. The common hepatic duct is mildly dilated, measuring up to 0.8 cm with gradual tapering distally . There is an adjacent tubular cystic structure posterior to the common hepatic duct which merges wit h the common hepatic duct distally just proximal to the ampulla Vater. This may represent a dilated s egment of the cystic duct or a duplicated common duct. The findings are similar to the prior MRCP in retrospect. No discrete filling defects to suggest choledocholithiasis. Pancreas is normal in morphol ogy, without adjacent soft tissue edema. Pancreatic duct is normal in caliber. Other solid organs: Liver and spleen are normal, ultrasound abdomen 02/21/2021 in size. No adrenal nodules. Kidneys demonstrate no hydronephrosis. Multiple bilateral renal cysts are demonstrated. Nodes and vessels: No retroperitoneal or mesenteric adenopathy by size criteria. Aorta and inferior vena cava are normal in size. Bowel and peritoneum: Visualized bowel loops are normal in caliber. No free fluid. Lung bases: No basal pleural effusions. Heart size is normal. Bones and soft tissues: No ventral hernias. Bone marrow is of normal overall signal. IMPRESSION: 1. Cholelithiasis without MRI evidence of cholecystitis. 2. Mild dilatation of the common hepatic duct without evidence of choledocholithiasis or discrete obs tructing mass visualized. 3. Adjacent tubular structure posterior to the common duct may represent a dilated cystic duct or a d uplicated common duct. This also demonstrates no stones or obstructing mass. Reviewed by: Thomas Alvarado MD on 03/04/2021 3:06 PM PDT Approved by: Thomas Alvarado MD on 03/04/2021 3:06 PM PDT Station ID: [id number]
== END 2021-03-04 08:14 | disposition home or self-care (01) ==
LOC: DI 08:13
PROVIDERS: ATTEND Family Medicine
DX: R10.9 Unspecified abdominal pain (principal); R93.5 Abnormal findings on diagnostic imaging of other abdominal regions, including retroperitoneum; K80.20 Calculus of gallbladder without cholecystitis without obstruction; K83.8 Other specified diseases of biliary tract

== ENCOUNTER 2021-03-24 11:13 | Emergency (ER) | payer MEDICARE, OTHER ==
[2021-03-24 11:20] VITALS: BP 147/82
[2021-03-24 11:41] LABS: BASOPHILS % (AUTO) 0.5 %; EOSINOPHILS # (AUTO) 0.1 10^3/uL (0.0-0.7); EOSINOPHILS % (AUTO) 1.3 %; HCT - HEMATOCRIT 43.3 % (37.0-47.0); HGB - HEMOGLOBIN 14.4 g/dL (12.0-16.0); LYMPHOCYTES # (AUTO) 1.2 10^3/uL (1.5-3.5); LYMPHOCYTES % (AUTO) 14.1 %; MEAN CORPUSCULAR HEMOGLOBIN 31.6 pg (27.0-31.0); MEAN CORPUSCULAR HGB CONC 33.3 g/dL (32.0-36.0); MEAN CORPUSCULAR VOLUME 95.2 fL (81.0-99.0); MEAN PLATELET VOLUME 10.3 fL (7.9-10.8); MONOCYTES # (AUTO) 0.7 10^3/uL (0.0-1.0); MONOCYTES % (AUTO) 7.9 %; NEUTROPHILS # (AUTO) 6.3 10^3/uL (1.5-6.6); NEUTROPHILS % (AUTO) 76.1 %; PLT - PLATELET COUNT 239 10^3/uL (130-450); RED BLOOD COUNT 4.55 10^6/uL (4.20-5.40); RED CELL DISTRIBUTION WIDTH 12.9 % (12.0-15.0); WHITE BLOOD COUNT 8.3 x10^3/uL (4.8-10.8)
[2021-03-24 11:45] LABS: BILIRUBIN,URINE NEGATIVE (NEGATIVE); GLUCOSE, URINE (UA) NEGATIVE (NEGATIVE); KETONES,URINE (UA) NEGATIVE (NEGATIVE); LEUKOCYTE ESTERASE, URINE NEGATIVE (NEGATIVE); NITRITE,URINE NEGATIVE (NEGATIVE); OCCULT BLOOD,URINE NEGATIVE (NEGATIVE); PROTEIN,URINE NEGATIVE (NEGATIVE); UROBILINOGEN,URINE 0.2 (NORMAL) E.U./dL (NORMAL)
[2021-03-24 11:55] LABS: ALBUMIN 4.5 g/dL (3.2-5.5); ALBUMIN/GLOBULIN RATIO 1.6 (1.0-2.2); BILIRUBIN,TOTAL 0.9 mg/dL (0.2-1.0); CALCIUM 9.7 mg/dL (8.5-10.3); CREATININE 0.7 mg/dL (0.4-1.0); POTASSIUM 3.6 mmol/L (3.5-5.0); TOTAL PROTEIN 7.4 g/dL (6.7-8.2)
[2021-03-24 11:57] LABS: CLARITY,URINE CLEAR (CLEAR)
[2021-03-24] MEDS ORDERED: MAG HYDROX/AL HYDROX/SIMETH 30 ML UDC PO STA (11:59)
[2021-03-24] MEDS ORDERED: SUCRALFATE 1 GM/10 ML UDC PO STA (11:59)
[2021-03-24] MEDS ORDERED: LIDOCAINE VISCOUS 2% 15 ML UDC MM STA (11:59)
--- NOTE | 2021-03-24 12:04 | ED Physician Documentation ---
History of Present Illness - Stated complaint Stated Complaint: ABD PX - Chief complaint Chief Complaint: Abd Pain - Additonal information Additional information: 75-year-old female presents to the emergency department with acute on chronic e pigastric and right upper quadrant abdominal pain. She reports that she has had a longstanding history of right upper quadrant pain and was referred to Dr. Gonzalez on the for surgical consultation of Her gallbladder. She was started on omeprazole a few weeks ago for persistent epigastric pain however it has been worse over the last 2 weeks with persistent fatigue. Some nausea no vomiting. She denies melena or hematochezia. She denies that she has pain that is worse after eating but has a constant pressure in her upper abdomen that will often radiate to the left side. She denies tobacco use. Was a former heavy drinker but stopped about 4 to 5 months ago. Past surgical history most significant for previous appendectomy Review of Systems Constitutional: denies: Fever, Chills Eyes: reports: Reviewed and negative Nose: reports: Reviewed and negative Throat: reports: Reviewed and negative Cardiac: reports: Reviewed and negative Respiratory: reports: Reviewed and negative GI: reports: Abdominal Pain. 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 : None HEENT: None Psych: None Musculoskeletal: Other Derm: None - Past Surgical History Past Surgical History: Yes General: Appendectomy /MARINE DESIGN ENGINEER: Dilation and currettage HEENT: Tonsil/Adenoidectomy - Present Medications Home Medications: Ambulatory Orders Medication Instructions Recorded Confirmed Amitriptyline [Elavil] 25 mg PO QPM 02/26/14 11/12/20 Metoprolol Tartrate 50 mg PO BID 02/26/14 11/12/20 Simvastatin [Zocor] 40 mg PO DAILY 02/26/14 11/12/20 hydroCHLOROthiazide [Hydrodiuril] 25 mg PO DAILY 12/07/15 11/12/20 Aspirin 81 mg PO DAILY 03/09/17 11/12/20 Calcium Carbonate [Calcium] 1 tab PO DAILY 11/12/20 11/12/20 Cholecalciferol (Vitamin D3) 1 tab PO DAILY 11/12/20 11/12/20 [Vitamin D3] Cyclobenzaprine [Flexeril] 10 mg PO Q6HR PRN 11/12/20 11/12/20 Magnesium 250 mg PO DAILY 11/12/20 11/12/20 Multivitamin 1 tab PO DAILY 11/12/20 11/12/20 Sucralfate [Carafate] 1 gm PO ACHS #60 tablet 03/24/21 - Allergies Allergies/Adverse Reactions: Allergies Allergy/AdvReac Type Severity Reaction Status Date / Time gluten Allergy Cramps Verified 03/24/21 11:20 morphine Allergy Emesis Verified 03/24/21 11:20 - Social History Does the pt smoke?: No Smoking Status: Never smoker Does the pt drink ETOH?: Yes Does the pt have substance abuse?: No - Immunizations Immunizations are current?: Yes Immunizations: TDAP current <10years - POLST Patient has POLST: No PD ED PE NORMAL - General General: Alert and oriented X 3, No acute distress - HEENT HEENT: Atraumatic, Ears normal, Moist mucous membranes, Pharynx benign - Neck Neck: Supple, no meningeal sign, No adenopathy - Cardiac Cardiac: RRR, No murmur, Strong equal pulses - Respiratory Respiratory: No respiratory distress, Clear bilaterally - Abdomen Abdomen: Normal bowel sounds, Soft. No: Non tender (RUQ tenderness. no guarding or rebound) - Back Back: No CVA TTP, No spinal TTP - Derm Derm: Normal color, Warm and dry, No rash - Extremities Extremities: No deformity, No tenderness to palpate, Normal ROM s pain - Neuro Neuro: Alert and oriented X 3 Eye Opening: Spontaneous Motor: Obeys Commands Verbal: Oriented GCS Score: 15 - Psych Psych: Normal mood Results - Vitals Vitals: Vital Signs - 24 hr 03/24/21 11:16 Temperature 35.9 C L Heart Rate 78 Respiratory 16 Rate Blood Pressure 147/82 H O2 Saturation 97 Oxygen O2 Source Room air - EKG (time done) 1240 Rate: Rate (enter#) (54) Rhythm: NSR [place]: Normal Intervals: Normal LA. No: Prolonged QT QRS: Normal Ischemia: Q waves (inferiro), T wave inversion Compare to prior EKG: Unchanged from prior EKG Computer interpretation: Agree with computer - Labs Labs: Laboratory Tests 03/24/21 03/24/21 03/24/21 11:35 11:35 11:35 WBC 8.3 RBC 4.55 Hgb 14.4 Hct 43.3 MCV 95.2 MCH 31.6 H MCHC 33.3 RDW 12.9 Plt Count 239 MPV 10.3 Neut # (Auto) 6.3 Lymph # (Auto) 1.2 L [place] # (Auto) 0.7 Eos # (Auto) 0.1 Baso # (Auto) 0.0 Absolute Nucleated RBC 0.00 Nucleated RBC % 0.0 Sodium 140 Potassium 3.6 Chloride 101 Carbon Dioxide 27 Anion Gap 12.0 BUN 19 Creatinine 0.7 Estimated GFR (MDRD) 82 L Glucose 133 H Calcium 9.7 Total Bilirubin 0.9 AST 22 ALT 24 Alkaline Phosphatase 52 Troponin I High Sens Total Protein 7.4 Albumin 4.5 Globulin 2.9 Albumin/Globulin Ratio 1.6 Lipase 33 Urine Color YELLOW Urine Clarity CLEAR Urine pH 7.0 Ur Specific [place] 1.015 Urine Protein NEGATIVE Urine Glucose (UA) NEGATIVE Urine Ketones NEGATIVE Urine Occult Blood NEGATIVE Urine Nitrite NEGATIVE Urine Bilirubin NEGATIVE Urine Urobilinogen 0.2 (NORMAL) Ur Leukocyte Esterase NEGATIVE Ur Microscopic Review NOT INDICATED Urine Culture Comments NOT INDICATED 03/24/21 11:35 WBC RBC Hgb Hct MCV MCH MCHC RDW Plt Count MPV Neut # (Auto) Lymph # (Auto) [place] # (Auto) Eos # (Auto) Baso # (Auto) Absolute Nucleated RBC Nucleated RBC % Sodium Potassium Chloride Carbon Dioxide Anion Gap BUN Creatinine Estimated GFR (MDRD) Glucose Calcium Total Bilirubin AST ALT Alkaline Phosphatase Troponin I High Sens 5.0 Total Protein Albumin Globulin Albumin/Globulin Ratio Lipase Urine Color Urine Clarity Urine pH Ur Specific [place] Urine Protein Urine Glucose (UA) Urine Ketones Urine Occult Blood Urine Nitrite Urine Bilirubin Urine Urobilinogen Ur Leukocyte Esterase Ur Microscopic Review Urine Culture Comments - Rads (name of study) Abd US Radiology: Final report received, See rad report, Other (No findings of acute cholecystitis.) PD MEDICAL DECISION MAKING - ED course Complexity details: reviewed results, re-evaluated patient, d/w patient Departure - Departure Disposition: 01 Home, Self Care Clinical Impression: Epigastric abdominal pain Cholelithiasis Qualifiers: Cholelithiasis location: gallbladder Cholecystitis presence: without cholecystitis Biliary obstruction: without biliary obstruction Qualified Code(s): K80.20 - Calculus of gallbladder without cholecystitis without obstruction Condition: Stable Record reviewed to determine appropriate education?: Yes Follow-Up: Kat Goncalves MD [Provider Admit Priv/Credential] - Leonie Mcclure DO [Primary Care Provider] - Prescriptions: Sucralfate [Carafate] 1 gm PO ACHS #60 tablet Comments: Ashely you are seen today for right upper quadrant and epigastric abdominal pain. Your screening labs do not show problems with your gallbladder or your pancreas. We did do a repeat abdominal ultrasound and we do see gallstones but no findings to suggest inflammation of the gallbladder. As we discussed at the bedside I suspect that your upper abdominal pain may be related to gastritis or peptic ulcer disease. Please continue to take the omeprazole as you already are but I would like you to begin taking Carafate at night before bed. Continue follow-up with Dr. Gonzalez for longer-term evaluation of your gallstones. However you may also benefit from an EGD or endoscopy to evaluate for ulcer formation in the stomach or first part of your intestine. If you develop any black or bloody stools, have uncontrolled vomiting, develop fevers or suddenly severe or different abdominal pain then please return to the ER for a second evaluation.
--- NOTE | 2021-03-24 16:19 | Ultrasound Report ---
PROCEDURE: Abdomen Limited INDICATIONS: epigastric RUQ abd pain TECHNIQUE: Real-time scanning was performed of the abdominal and retroperitoneal organs, with image documentatio n. COMPARISON: MRI dated 03/04/2021 FINDINGS: Liver: The liver demonstrates diffusely increased echotexture without focal abnormalities which is c onsistent with chronic hepatocellular disease/hepatic steatosis. Gallbladder: Gallbladder contains a single gallstone measuring approximately 1.9 cm in size. Accounti ng for differences in technique, this is similar to size of the stone seen on recent comparison MRI. No pericholecystic fluid. Negative sonographic Bo's. No wall thickening. Biliary ducts: Intrahepatic bile ducts are non-dilated. Extrahepatic bile duct caliber measures 9 m m. Similar to MRI, the distal common bile duct near the ampulla of tapers down to approximately 5 mm . Normal is 6-7 mm or less in diameter, or 10 mm or less post-cholecystectomy. Pancreas: Visualized portions of the pancreas are sonographically normal. Kidneys: Right kidney is normal in size and echotexture. Right kidney measures 11.5 cm long. No hydr onephrosis or nephrolithiasis. No solid masses. Miscellaneous: No free abdominal fluid. IMPRESSION: Redemonstration of cholelithiasis without sonographic evidence for acute cholecystitis. Persistent prominence of the extrahepatic bile duct measuring up to 9 mm in diameter and tapering shahida n to normal size near the ampulla. No sonographic evidence of choledocholithiasis. Diffusely increased hepatic echotexture consistent with chronic hepatocellular disease versus hepatic steatosis. Reviewed by: Edd Trejo MD on 03/24/2021 4:18 PM PST Approved by: Edd Trejo MD on 03/24/2021 4:18 PM PST Station ID: [id number]
== END 2021-03-24 14:16 | disposition home or self-care (01) ==
LOC: ED 11:13
DX: K80.20 Calculus of gallbladder without cholecystitis without obstruction (principal); I10 Essential (primary) hypertension; Z79.82 Long term (current) use of aspirin; Z79.51 Long term (current) use of inhaled steroids
CPT/HCPCS: 36415; 76705; 80053; 81003; 83690; 84484; 85025; 93005; 99284; A9270; 81001; 87086

== ENCOUNTER 2021-05-25 08:00 | Outpatient (CLI) | payer MEDICARE, OTHER ==
[2021-05-25 18:43] LABS: CHOL/HDL RATIO 3.7 (<4.4); CHOLESTEROL 221 mg/dL; HDL CHOLESTEROL 59 mg/dL; LDL CHOLESTEROL,CALCULATED 134 mg/dL; LDL/HDL RATIO 2.3 (<4.4); TRIGLYCERIDES 141 mg/dL; URIC ACID 7.1 mg/dL (2.6-7.2); VLDL CHOLESTEROL 28 mg/dL
[2021-05-25 18:53] LABS: CRP - C-REACTIVE PROTEIN < 1.0 mg/dL (0-1.0)
[2021-05-25 21:02] LABS: ESTIMATED AVERAGE GLUCOSE 126 mg/dL (70-100)
== END 2021-05-25 23:59 | disposition home or self-care (01) ==
LOC: LAB.WCP 08:00
PROVIDERS: ATTEND Family Medicine
DX: E11.9 Type 2 diabetes mellitus without complications (principal); M10.9 Gout, unspecified; M25.50 Pain in unspecified joint
CPT/HCPCS: 36415; 80061; 83036; 83721; 84550; 85651; 86140

== ENCOUNTER 2021-06-14 06:27 | Day surgery (SDC) | payer MEDICARE, OTHER ==
[2021-06-14] MEDS ORDERED: LACTATED RINGERS 1,000 ML IV ONE ×2 (06:30→09:51)
[2021-06-14] MEDS ORDERED: PROPOFOL 500 MG/50 ML 500 MG/50 ML VIAL ONE (07:04)
--- NOTE | 2021-06-14 07:12 | ANESTHESIA ---
Pre-Anesthesia VS, & Labs - Diagnosis epigastric pain, screening exam - Procedure EGD and colonoscopy Vital Signs: Temp Pulse Resp BP Pulse Ox 36.6 C 74 14 113/99 H 96 06/14/21 06:30 06/14/21 06:30 06/14/21 06:30 06/14/21 06:30 06/14/21 06:30 Height: 5 ft 4 in Weight (kg): 70.2 kg Body Mass Index: 26.5 BMI Classification: Overweight - NPO >8 hours - Is Patient ?: No Home Medications and Allergies Home Medications: Ambulatory Orders Omeprazole Magnesium 20 mg PO DAILY 06/11/21 Amitriptyline [Elavil] 25 mg PO QPM 02/26/14 Metoprolol Tartrate 50 mg PO BID 02/26/14 Simvastatin [Zocor] 40 mg PO DAILY 02/26/14 hydroCHLOROthiazide [Hydrodiuril] 25 mg PO DAILY 12/07/15 Cholecalciferol (Vitamin D3) [Vitamin D3] 1 tab PO DAILY 11/12/20 Cyclobenzaprine [Flexeril] 10 mg PO Q6HR PRN 11/12/20 Magnesium 250 mg PO DAILY 11/12/20 Multivitamin 1 tab PO DAILY 11/12/20 Omeprazole Magnesium 20 mg PO DAILY 06/11/21 Allergies/Adverse Reactions: Allergies Allergy/AdvReac Type Severity Reaction Status Date / Time gluten Allergy Cramps Verified 03/24/21 11:20 morphine Allergy Emesis Verified 03/24/21 11:20 Anes History & Medical History - Anesthetic History Anesthesia Complications: reports: No previous complications - Medical History Cardiovascular: reports: Hypertension Pulmonary: reports: None Gastrointestinal: reports: None Urinary: reports: None Neuro: reports: None Musculoskeletal: reports: Other (leg cramps) Endocrine/Autoimmune: reports: None Blood Disorders: reports: None Skin: reports: None Smoking Status: Never smoker Psychosocial: reports: No issues indicated History of Cancer?: No - Surgical History General: reports: Appendectomy, Colonoscopy Eyes Ears Nose Throat (EENT): reports: Tonsil/Adenoidectomy Gynecologic: reports: Dilation and currettage Orthopedic: reports: Other Exam General: Alert, Oriented x3, Cooperative, No acute distress Dental: WNL Mouth Openin Fingerbreadth Neck Mobility: Normal Mallampati classification: II Thyromental Distance: 4-6 cm Mental/Cognitive Status: Alert/Oriented X3, Normal for patient Plan Anesthesia Type: General, Total IV Consent for Procedure(s) Verified and Reviewed: Yes Code Status: Attempt Resuscitation ASA classification: 2-Mild systemic disease Is this case an emergency?: No
[2021-06-14] MEDS ORDERED: LIDOCAINE-MPF 2% 5 ML VIAL ONE ×2 (08:32→09:14)
[2021-06-14 10:16] VITALS: BP 135/81
--- NOTE | 2021-06-14 14:44 | ANESTHESIA POST OP EVALUATION ---
Anesthesia Post Eval - Post Anesthesia Eval Vitals: Last Vital Signs Temp 36.3 C L 06/14/21 10:15 Pulse 71 06/14/21 10:15 Resp 14 06/14/21 10:15 BP 135/81 H 06/14/21 10:15 Pulse Ox 97 06/14/21 10:15 CV Function Including HR & BP: Stable Pain Control: Satisfactory Nausea & Vomiting: Negative Mental Status: Baseline Respiratory Status: Airway Patent Hydration Status: Satisfactory Anesthesia Complications: None
== END 2021-06-14 06:28 | disposition home or self-care (01) ==
LOC: SDS 06:27
PROVIDERS: ATTEND Surgery
PROC: 0DB68ZX Excision of Stomach, Via Natural or Artificial Opening Endoscopic, Diagnostic (ICD-10-PCS; 2021-06-14)
PROC: 0DB58ZX Excision of Esophagus, Via Natural or Artificial Opening Endoscopic, Diagnostic (ICD-10-PCS; 2021-06-14)
PROC: 0DB48ZX Excision of Esophagogastric Junction, Via Natural or Artificial Opening Endoscopic, Diagnostic (ICD-10-PCS; 2021-06-14)
PROC: 0DJD8ZZ Inspection of Lower Intestinal Tract, Via Natural or Artificial Opening Endoscopic (ICD-10-PCS; principal; 2021-06-14 07:30)
PROC: 0DB98ZX Excision of Duodenum, Via Natural or Artificial Opening Endoscopic, Diagnostic (ICD-10-PCS; 2021-06-14 07:30)
DX: Z12.11 Encounter for screening for malignant neoplasm of colon (principal); K57.30 Diverticulosis of large intestine without perforation or abscess without bleeding; K64.4 Residual hemorrhoidal skin tags; K64.8 Other hemorrhoids; K21.9 Gastro-esophageal reflux disease without esophagitis; R10.13 Epigastric pain; J45.909 Unspecified asthma, uncomplicated; Z86.010 Personal history of colon polyps; K80.20 Calculus of gallbladder without cholecystitis without obstruction; I10 Essential (primary) hypertension; F41.9 Anxiety disorder, unspecified; K44.9 Diaphragmatic hernia without obstruction or gangrene
CPT/HCPCS: 43239; G0105; J7120

== ENCOUNTER 2021-07-19 08:50 | Day surgery (SDC) | payer MEDICARE, OTHER ==
[~2021-07-19 08:50] MED LIST: BUPIVACAINE 0.5% PF 10 ML VIAL ONE; LIDOCAINE 2%-EPI 1:100000 20 ML MDV ONE; LIDOCAINE-MPF 1% 30 ML VIAL ONE
[2021-07-19] MEDS ORDERED: LACTATED RINGERS 1,000 ML IV ONE ×2 (09:35→12:34)
[2021-07-19] MEDS ORDERED: MORPHINE 2 MG/ML CARPUJECT IVP PRN (10:08)
[2021-07-19] MEDS ORDERED: NALOXONE 0.4 MG/ML VIAL IVP PRN (10:08)
[2021-07-19] MEDS ORDERED: fentaNYL 100 MCG/2 ML VIAL IVP PRN (10:08)
[2021-07-19] MEDS ORDERED: ePHEDrine 50 MG/ML VIAL IVP PRN (10:08)
[2021-07-19] MEDS ORDERED: ONDANSETRON 4 MG/2 ML VIAL IVP PRN ×2 (10:08→12:34)
[2021-07-19] MEDS ORDERED: HYDROmorphone 0.5 MG/0.5 ML SYRINGE IVP PRN (10:08)
[2021-07-19] MEDS ORDERED: METOCLOPRAMIDE 10 MG/2 ML VIAL IVP PRN (10:08)
[2021-07-19] MEDS ORDERED: ATROPINE ABBOJECT 1 MG/10 ML SYRINGE IVP PRN (10:08)
--- NOTE | 2021-07-19 10:08 | ANESTHESIA ---
Pre-Anesthesia VS, & Labs - Diagnosis cholelithiasis - Procedure laparoscopic cholecystectomy Height: 5 ft 4 in Weight (kg): 70.5 kg Body Mass Index: 26.6 BMI Classification: Overweight - NPO >8 hours Last Fluid Intake: sips h20 w/am meds - Is Patient ?: No - Lab Results Lab results reviewed: Yes Home Medications and Allergies Home Medications: Ambulatory Orders Fluticasone [Flonase] 2 spray SAFIA BID 07/08/21 Amitriptyline [Elavil] 25 mg PO QPM 02/26/14 Metoprolol Tartrate 50 mg PO BID 02/26/14 Simvastatin [Zocor] 40 mg PO DAILY 02/26/14 hydroCHLOROthiazide [Hydrodiuril] 50 mg PO DAILY 12/07/15 Cholecalciferol (Vitamin D3) [Vitamin D3] 1 tab PO DAILY 11/12/20 Cyclobenzaprine [Flexeril] 10 mg PO Q6HR PRN 11/12/20 Multivitamin 1 tab PO DAILY 11/12/20 Omeprazole Magnesium 20 mg PO BID 06/11/21 Fluticasone [Flonase] 2 spray SAFIA BID 07/08/21 Allergies/Adverse Reactions: Allergies Allergy/AdvReac Type Severity Reaction Status Date / Time gluten Allergy Cramps Verified 03/24/21 11:20 morphine Allergy Emesis Verified 03/24/21 11:20 Anes History & Medical History - Anesthetic History Anesthesia Complications: reports: No previous complications Family history of Anesthesia Complications: Denies Family history of Malignant Hyperthermia: Denies - Medical History Cardiovascular: reports: Hypertension, High cholesterol Pulmonary: reports: None Gastrointestinal: reports: GERD, Hiatal hernia, Cholelithiasis, Other Urinary: reports: None Neuro: reports: None Musculoskeletal: reports: Osteoarthritis, Fibromyalgia, Other Endocrine/Autoimmune: reports: None Blood Disorders: reports: None Skin: reports: None Smoking Status: Never smoker Psychosocial: reports: No issues indicated History of Cancer?: No - Surgical History General: reports: Appendectomy, Colonoscopy, EGD Eyes Ears Nose Throat (EENT): reports: Tonsil/Adenoidectomy Gynecologic: reports: Dilation and currettage Orthopedic: reports: Shoulder arthroplasty, Other Exam General: Alert, Oriented x3, Cooperative Dental: WNL Mouth Opening: Greater than 4 Fingerbreadths Neck Mobility: Normal Mallampati classification: I Thyromental Distance: 4-6 cm Respiratory: Lungs clear, Normal breath sounds, No respiratory distress Cardiovascular: Regular rate (esther at 55ish) Neurological: Normal speech Mental/Cognitive Status: Alert/Oriented X3, Normal for patient Cognitive Status: Within normal limits Plan Anesthesia Type: General Consent for Procedure(s) Verified and Reviewed: Yes Code Status: Attempt Resuscitation ASA classification: 2-Mild systemic disease Is this case an emergency?: No
[2021-07-19] MEDS ORDERED: LIDOCAINE-MPF 2% 5 ML VIAL ONE (10:59)
[2021-07-19] MEDS ORDERED: ROCURONIUM 50 MG/5 ML VIAL ONE (10:59)
[2021-07-19] MEDS ORDERED: PROPOFOL 200 MG/20 ML VIAL IVP ONE (10:59)
[2021-07-19] MEDS ORDERED: fentaNYL 100 MCG/2 ML VIAL ONE (11:00)
[2021-07-19] MEDS ORDERED: MIDAZOLAM 2 MG/2 ML VIAL ONE (11:00)
[2021-07-19] MEDS ORDERED: LACTATED RINGERS 1,000 ML IV SCH (11:00)
[2021-07-19] MEDS ORDERED: CEFAZOLIN SODIUM IN 0.9 % NACL 2 GM/50 ML BAG IV ONE (11:37)
[2021-07-19] MEDS ORDERED: ePHEDrine 50 MG/ML VIAL IVP ONE (12:01)
[2021-07-19] MEDS ORDERED: BUPIVACAINE 0.5% PF 30 ML VIAL SUBQ ONE ×2 (12:03)
[2021-07-19] MEDS ORDERED: LIDOCAINE 2%-EPI 1:100000 20 ML MDV SUBQ ONE (12:03)
[2021-07-19] MEDS ORDERED: PHENYLEPHRINE 10 MG/ML VIAL ONE (12:03)
[2021-07-19] MEDS ORDERED: DEXAMETHASONE 4 MG/ML VIAL ONE (12:12)
[2021-07-19] MEDS ORDERED: ONDANSETRON 4 MG/2 ML VIAL ONE (12:12)
[2021-07-19] MEDS ORDERED: SUGAMMADEX 200 MG/2 ML VIAL IVP ONE (12:27)
--- NOTE | 2021-07-19 12:32 | OPERATIVE REPORT ---
Operative Report - General Procedure Date: 07/19/21 Planned Procedure: Laparoscopic cholecystectomy Pre-Op Diagnosis: Symptomatic cholelithiasis and chronic cholecystitis Procedure Performed: Laparoscopic Cholecystectomy Post Op Diagnosis: Symptomatic cholelithiasis and chronic cholecystitis - Procedure Note Primary Surgeon: Ivanna Anesthesia Provider: LATISHA Hong Anesthesia Technique: General ET tube, Local Pathology: Gallbladder to pathology in formalin Estimated Blood Loss (mL): 10 Indications: Intermittent acute right upper quadrant pain Findings: Thin-walled gallbladder with significant surrounding adhesions Complications: None apparent - Other Other Information/Narrative: After obtaining informed consent the patient is brought to the operating room and placed in the supine position on the operating table. Following successful induction of general endotracheal anesthesia, appropriate padding of all bony prominences, and placement of appropriate monitors, the abdomen was prepped and draped in the standard surgical fashion. A timeout was held per scope protocol. All elements of the surgical safety checklist were followed before, during, and after the procedure. Following infiltration with local anesthetic to create a field block, an incision was created inferior to the umbilicus and carried down through the skin and subcutaneous tissue to reveal the fascia below. 2-0 Vicryl retention sutures were placed on either side of the midline and the abdomen was entered under direct vision using a 15 blade scalpel. A 10 mm blunt Swanson balloon trocar was placed in the abdominal cavity and it was insufflated to 15 mmHg pressure. The patient was placed in reverse Trendelenburg position with the left side rotated toward the floor. A second trocar, 5 mm, was placed in the midepigastrium under direct vision and after anesthetization of the surrounding skin.A third trocar, also 5 mm was placed in the right upper quadrant for retr action of the gallbladder and a fourth 1 just medial to that as a working port as well. The gallbladder was examined. It was adherent to the surrounding structures including the omentum and the right colon. These structures were carefully dissected free from the surface of the gallbladder using a mixture of blunt and sharp dissection. The fundus of the gallbladder was then grasped and elevated up over the liver revealing the cholecysto hepatoduodenal ligament. The neck of the gallbladder was retracted laterally and the cystic duct and artery were carefully identified. The common duct was visualized but not skeletonized. The cystic duct was clipped 3 times proximally and once distally and divided, the cystic artery was clipped twice proximally, once distally, and divided. The gallbladder was then liberated from its bed in the liver using cautery. It was placed in an Endo Catch bag and removed via the umbilical port with a camera in the epigastric position. The camera was replaced in the umbilical position and the abdomen was checked for hemostasis. It was irrigated with warm saline solution and aspirated free of all fluid and particulate matter. The trochars were then removed under direct vision and the abdomen desufflated. The umbilical incision was closed with interrupted Vicryl suture and Monocryl was placed in all of the skin incisions. All sponge, needle, and instrument counts were correct at the conclusion of the case. The patient was allowed awaken from anesthesia without difficulty and taken to the postanesthesia care unit in good condition.
[2021-07-19] MEDS ORDERED: HYDROmorphone 1 MG/ML CARPUJECT ONE (12:33)
[2021-07-19] MEDS ORDERED: IBUPROFEN 600 MG TABLET PO PRN (12:34)
[2021-07-19] MEDS ORDERED: oxyCODONE 5 MG TABLET PO PRN (12:34)
[2021-07-19] MEDS ORDERED: ACETAMINOPHEN 325 MG TABLET PO PRN (12:34)
--- NOTE | 2021-07-19 13:31 | ANESTHESIA POST OP EVALUATION ---
Anesthesia Post Eval - Post Anesthesia Eval Vitals: Last Vital Signs Temp 36.8 C 07/19/21 13:05 Pulse 65 07/19/21 13:21 Resp 16 07/19/21 13:21 BP 139/73 H 07/19/21 13:21 Pulse Ox 94 07/19/21 13:21 CV Function Including HR & BP: Stable Pain Control: Satisfactory Nausea & Vomiting: Negative Mental Status: Baseline Respiratory Status: Airway Patent Hydration Status: Satisfactory Anesthesia Complications: None
[2021-07-19] MEDS ORDERED: ceFAZolin 1 GM VIAL ONE (13:40)
[2021-07-19] MEDS ORDERED: IBUPROFEN 600 MG TABLET PO ONE (14:10)
[2021-07-19 15:06] VITALS: BP 118/51
== END 2021-07-19 08:51 | disposition home or self-care (01) ==
LOC: SDS 08:50
PROVIDERS: ATTEND Surgery
PROC: 0FT44ZZ Resection of Gallbladder, Percutaneous Endoscopic Approach (ICD-10-PCS; principal; 2021-07-19 10:00)
DX: K80.10 Calculus of gallbladder with chronic cholecystitis without obstruction (principal)
CPT/HCPCS: 47562; A9270; J0690; J1170; J7120

== ENCOUNTER 2022-01-15 08:00 | Outpatient (CLI) | payer MEDICARE, OTHER ==
[2022-01-15 19:06] LABS: BASOPHILS % (AUTO) 0.7 %; EOSINOPHILS # (AUTO) 0.2 10^3/uL (0.0-0.7); EOSINOPHILS % (AUTO) 2.8 %; HGB - HEMOGLOBIN 14.1 g/dL (12.0-16.0); LYMPHOCYTES % (AUTO) 34.6 %; MEAN CORPUSCULAR HEMOGLOBIN 30.6 pg (27.0-31.0); MEAN CORPUSCULAR VOLUME 95.4 fL (81.0-99.0); MEAN PLATELET VOLUME 11.6 fL (7.9-10.8); MONOCYTES # (AUTO) 0.5 10^3/uL (0.0-1.0); MONOCYTES % (AUTO) 8.2 %; NEUTROPHILS # (AUTO) 3.1 10^3/uL (1.5-6.6); NEUTROPHILS % (AUTO) 53.7 %; PLT - PLATELET COUNT 233 10^3/uL (130-450); RED BLOOD COUNT 4.61 10^6/uL (4.20-5.40); RED CELL DISTRIBUTION WIDTH 13.7 % (12.0-15.0); WHITE BLOOD COUNT 5.8 x10^3/uL (4.8-10.8)
== END 2022-01-15 23:59 | disposition home or self-care (01) ==
LOC: LAB.N 08:00
PROVIDERS: ATTEND Physician Assistant Medical
DX: R10.9 Unspecified abdominal pain (principal)
CPT/HCPCS: 36415; 80053; 83690; 85025

== ENCOUNTER 2022-01-23 12:45 | Emergency (ER) | payer MEDICARE, OTHER ==
--- NOTE | 2022-01-23 13:27 | XRAY Report ---
PROCEDURE: Chest 1 View X-Ray INDICATIONS: Chest pain TECHNIQUE: One view of the chest was acquired. COMPARISON: Chest radiograph 11/12/2020 FINDINGS: Surgical changes and devices: A right shoulder arthroplasty is noted. Lungs and pleura: No pleural effusions or pneumothorax. Lungs are clear. Mediastinum: Mediastinal contours appear normal. Heart size is normal. Bones and chest wall: No suspicious bony lesions. Overlying soft tissues appear unremarkable. IMPRESSION: No acute cardiopulmonary abnormality. Reviewed by: Ryder Cesar MD on 01/23/2022 12:26 PM [facility] Approved by: Ryder Cesar MD on 01/23/2022 12:26 PM [facility] Station ID: [id number]
--- NOTE | 2022-01-23 13:33 | ED Physician Documentation ---
PD HPI ABD PAIN - Stated complaint Stated Complaint: CHEST PRESSURE/NAUSEA - Chief complaint Chief Complaint: Cardiac - History obtained from History obtained from: Patient - Additional information Additional information: 76-year-old woman with history of hypertension has been feeling off ever since she had her gallbladder out in July of this year. More recently she has had some upper abdominal discomfort. She went to the walk-in clinic and she had a CBC done that was normal but sounds like her chemistry panel was hemolyzed. She was post return for redraw. She went back today but they were closed. She complains of upper abdominal pressure especially this morning that was better after a bowel movement. She has had some nausea ongoing for several months. She denies weight loss. She does have a history of IBS. She is noticed up-and-down blood pressures despite being compliant with her metoprolol and hydrochlorothiazide. She denies exertional symptoms or shortness of breath. Review of Systems Ten Systems: 10 systems reviewed and negative Constitutional: reports: Myalgias (Chronically better after she switched to a gluten-free diet 10 years ago). 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 : None HEENT: None Psych: None Musculoskeletal: Osteoarthritis, Fibromyalgia, Other Derm: None - Past Surgical History Past Surgical History: Yes General: Appendectomy, Colonoscopy, EGD Ortho: Shoulder arthroplasty, Other /GRAB SETTER: Dilation and currettage HEENT: Tonsil/Adenoidectomy - Present Medications Home Medications: Ambulatory Orders Medication Instructions Recorded Confirmed Amitriptyline [Elavil] 25 mg PO QPM 02/26/14 01/23/22 Metoprolol Tartrate 50 mg PO BID 02/26/14 01/23/22 Simvastatin [Zocor] 40 mg PO DAILY 02/26/14 01/23/22 hydroCHLOROthiazide [Hydrodiuril] 50 mg PO DAILY 12/07/15 01/23/22 Cholecalciferol (Vitamin D3) 1 tab PO DAILY 11/12/20 01/23/22 [Vitamin D3] Cyclobenzaprine [Flexeril] 10 mg PO Q6HR PRN 11/12/20 01/23/22 Multivitamin 1 tab PO DAILY 11/12/20 01/23/22 Omeprazole Magnesium 20 mg PO BID 06/11/21 01/23/22 - Allergies Allergies/Adverse Reactions: Allergies Allergy/AdvReac Type Severity Reaction Status Date / Time gluten Allergy Cramps Verified 01/23/22 13:01 morphine Allergy Emesis Verified 01/23/22 13:01 - Social History Does the pt smoke?: No Smoking Status: Never smoker Does the pt drink ETOH?: Yes Does the pt have substance abuse?: No - Immunizations Immunizations are current?: Yes Immunizations: TDAP current <10years - POLST Patient has POLST: No PD ED PE NORMAL - Vitals Vital signs reviewed: Yes - General General: Alert and oriented X 3, No acute distress - HEENT HEENT: PERRL, EOMI - Neck Neck: Supple, no meningeal sign, No bony TTP - Cardiac Cardiac: RRR, No murmur - Respiratory Respiratory: No respiratory distress, Clear bilaterally - Abdomen Abdomen: Normal bowel sounds, Soft, Non tender - Back Back: No CVA TTP, No spinal TTP - Derm Derm: Normal color, Warm and dry - Extremities Extremities: No edema, No calf tenderness / cord - Neuro Neuro: Alert and oriented X 3, Normal speech Results - Vitals Vitals: Vital Signs - 24 hr 01/23/22 01/23/22 01/23/22 12:57 13:30 14:00 Temperature 36.1 C L Heart Rate 62 61 56 L Respiratory 16 18 18 Rate Blood Pressure 163/93 H 151/94 H 138/76 H O2 Saturation 97 98 96 Oxygen O2 Source Room air - EKG (time done) 1252 Rate: Rate (enter#) (60) Rhythm: NSR, LAE [place]: LAD Intervals: Normal [place] QRS: Normal Ischemia: Non specific changes Compare to prior EKG: Unchanged from prior EKG - Labs Labs: Laboratory Tests 01/23/22 01/23/22 01/23/22 13:45 13:45 13:45 WBC 4.5 L RBC 4.24 Hgb 13.4 Hct 40.4 MCV 95.3 MCH 31.6 H MCHC 33.2 RDW 13.6 Plt Count 217 MPV 10.4 Neut # (Auto) 2.4 Lymph # (Auto) 1.5 [place] # (Auto) 0.5 Eos # (Auto) 0.1 Baso # (Auto) 0.0 Absolute Nucleated RBC 0.00 Nucleated RBC % 0.0 Sodium 141 Potassium 3.8 Chloride 102 Carbon Dioxide 30 Anion Gap 9.0 BUN 19 Creatinine 0.7 Estimated GFR (MDRD) 82 L Glucose 117 H Calcium 9.5 Total Bilirubin 0.8 AST 22 ALT 20 Alkaline Phosphatase 43 Troponin I High Sens 4.3 Total Protein 7.4 Albumin 4.5 Globulin 2.9 Albumin/Globulin Ratio 1.6 Lipase 31 PD MEDICAL DECISION MAKING - ED course ED course: This is a jessica 76-year-old woman presents with some upper abdominal discomfort, she is worried about her pancreas specifically, she use had her gallbladder out a few months ago. Her work-up here is negative with an unchanged EKG, negative cardiac, hepatic, and pancreatic markers and a clear chest x-ray. She felt relieved. Departure - Departure Disposition: 01 Home, Self Care Clinical Impression: Epigastric abdominal pain Condition: Good Record reviewed to determine appropriate education?: Yes Instructions: ED Abdominal Pain Female Non-Specific Abdominal Pain, ED Chest Pain Atypical Unkn Cause Comments: As discussed, your chest x-ray and labs are normal without evidence of any pro blems with your pancreas, gallbladder, or heart. Call your doctor to arrange a follow-up appointment, make the next available appointment. In the interim, return anytime if worse or if new symptoms develop.
[2022-01-23 13:50] LABS: BASOPHILS % (AUTO) 0.9 %; EOSINOPHILS # (AUTO) 0.1 10^3/uL (0.0-0.7); EOSINOPHILS % (AUTO) 2.7 %; HCT - HEMATOCRIT 40.4 % (37.0-47.0); HGB - HEMOGLOBIN 13.4 g/dL (12.0-16.0); LYMPHOCYTES # (AUTO) 1.5 10^3/uL (1.5-3.5); LYMPHOCYTES % (AUTO) 32.4 %; MEAN CORPUSCULAR HEMOGLOBIN 31.6 pg (27.0-31.0); MEAN CORPUSCULAR HGB CONC 33.2 g/dL (32.0-36.0); MEAN CORPUSCULAR VOLUME 95.3 fL (81.0-99.0); MEAN PLATELET VOLUME 10.4 fL (7.9-10.8); MONOCYTES # (AUTO) 0.5 10^3/uL (0.0-1.0); NEUTROPHILS # (AUTO) 2.4 10^3/uL (1.5-6.6); PLT - PLATELET COUNT 217 10^3/uL (130-450); RED BLOOD COUNT 4.24 10^6/uL (4.20-5.40); RED CELL DISTRIBUTION WIDTH 13.6 % (12.0-15.0); WHITE BLOOD COUNT 4.5 x10^3/uL (4.8-10.8)
[2022-01-23 14:03] VITALS: BP 138/76
[2022-01-23 14:09] LABS: ALBUMIN 4.5 g/dL (3.2-5.5); ALBUMIN/GLOBULIN RATIO 1.6 (1.0-2.2); BILIRUBIN,TOTAL 0.8 mg/dL (0.2-1.0); CALCIUM 9.5 mg/dL (8.5-10.3); CREATININE 0.7 mg/dL (0.4-1.0); POTASSIUM 3.8 mmol/L (3.5-5.0); TOTAL PROTEIN 7.4 g/dL (6.7-8.2)
== END 2022-01-23 14:45 | disposition home or self-care (01) ==
LOC: ED 12:45
DX: R10.13 Epigastric pain (principal)
CPT/HCPCS: 36415; 80053; 83690; 84484; 85025; 93005; 99282; 99284

== ENCOUNTER 2022-06-09 14:55 | Outpatient (CLI) | payer MEDICARE, OTHER ==
--- NOTE | 2022-06-10 11:45 | Mammography Report ---
BILATERAL DIGITAL SCREENING MAMMOGRAM 3D/2D: 06/09/2022 CLINICAL: Family history of breast cancer. Routine screening. Comparison is made to exams dated: 03/03/2021 mammogram, 03/09/2020 mammogram, 04/03/2018 mammogram, 11/17/2016 mammogram, 03/16/2015 mammogram, and 01/22/2014 mammogram - [facility]. There are scattered areas of fibroglandular density in both breasts (category b / 25%-50% glandular t issue). No significant masses, calcifications, or other findings are seen in either breast. There has been no significant interval change. IMPRESSION: NEGATIVE There is no mammographic evidence of malignancy. A 1 year screening mammogram is recommended. Based on the Tyrer Cuzick model (a risk assessment model) the patients lifetime risk is 11.5% and he r 10 year risk is 11.5%. According to the ACR, ACS, and NCCN guidelines, an annual breast MRI exam al shirin with mammogram is recommended if the patients lifetime risk is 20% or greater. This exam was interpreted at Station ID: [id number]. NOTE: For mammograms, a report in lay terms will be sent to the patient. Approximately 15% of breast malignancies will not be visualized mammographically. In the management of a palpable breast mass, a negative mammogram must not discourage biopsy of a clinically suspicious lesion. Electronically Signed By: Edd jean [email or web address]/[email or web address]:06/10/2022 07:12:04 ACR BI-RADS Category 1: Negative 3341F PARENCHYMAL PATTERN: (A) - The breast(s) demonstrate(s) scattered fibroglandular densities. BI-RADS CATEGORY: (1) - 1 RECOMMENDATION: (ANNUAL) - Recommend routine annual screening mammography. [id number] 1 year screening LATERALITY: (B)
== END 2022-06-09 14:56 | disposition home or self-care (01) ==
LOC: DI.N 14:55
DX: Z12.31 Encounter for screening mammogram for malignant neoplasm of breast (principal); Z80.3 Family history of malignant neoplasm of breast

== ENCOUNTER 2022-09-13 14:52 | Outpatient (CLI) | payer MEDICARE, OTHER ==
[2022-09-13 18:27] LABS: BASOPHILS % (AUTO) 0.7 %; EOSINOPHILS # (AUTO) 0.1 10^3/uL (0.0-0.7); EOSINOPHILS % (AUTO) 2.4 %; HCT - HEMATOCRIT 43.2 % (37.0-47.0); HGB - HEMOGLOBIN 13.7 g/dL (12.0-16.0); LYMPHOCYTES # (AUTO) 1.6 10^3/uL (1.5-3.5); LYMPHOCYTES % (AUTO) 27.6 %; MEAN CORPUSCULAR HEMOGLOBIN 31.2 pg (27.0-31.0); MEAN CORPUSCULAR HGB CONC 31.7 g/dL (32.0-36.0); MEAN CORPUSCULAR VOLUME 98.4 fL (81.0-99.0); MEAN PLATELET VOLUME 11.3 fL (7.9-10.8); MONOCYTES # (AUTO) 0.6 10^3/uL (0.0-1.0); MONOCYTES % (AUTO) 10.2 %; NEUTROPHILS # (AUTO) 3.4 10^3/uL (1.5-6.6); NEUTROPHILS % (AUTO) 58.9 %; PLT - PLATELET COUNT 261 10^3/uL (130-450); RED BLOOD COUNT 4.39 10^6/uL (4.20-5.40); RED CELL DISTRIBUTION WIDTH 12.9 % (12.0-15.0); WHITE BLOOD COUNT 5.8 x10^3/uL (4.8-10.8)
[2022-09-13 18:39] LABS: ALBUMIN 4.2 g/dL (3.2-5.5); ALBUMIN/GLOBULIN RATIO 1.3 (1.0-2.2); ALKALINE PHOSPHATASE 41 IU/L (42-121); ALT ALANINE AMINOTRANSFERASE 24 IU/L (10-60); AST ASPARTATE AMINOTRANSFERASE 21 IU/L (10-42); BILIRUBIN,TOTAL 0.8 mg/dL (0.2-1.0); BUN - BLOOD UREA NITROGEN 20 mg/dL (6-20); CALCIUM 9.6 mg/dL (8.5-10.3); CARBON DIOXIDE - CO2 30 mmol/L (21-32); CHLORIDE 102 mmol/L (101-111); CHOLESTEROL 213 mg/dL; CREATININE 0.8 mg/dL (0.4-1.0); GFR - MDRD 70 (>89); GLUCOSE 114 mg/dL (70-100); HDL CHOLESTEROL 71 mg/dL; LDL CHOLESTEROL,CALCULATED 123 mg/dL; LDL/HDL RATIO 1.7 (<4.4); SODIUM 141 mmol/L (135-145); TOTAL PROTEIN 7.4 g/dL (6.7-8.2); TRIGLYCERIDES 95 mg/dL; VLDL CHOLESTEROL 19 mg/dL
[2022-09-13 18:54] LABS: THYROID STIMULATING HORMONE 3.27 uIU/mL (0.34-5.60)
[2022-09-13 20:34] LABS: ESTIMATED AVERAGE GLUCOSE 126 mg/dL (70-100)
== END 2022-09-13 14:53 | disposition home or self-care (01) ==
LOC: LAB.N 14:52
PROVIDERS: ATTEND Nurse Practitioner Family
DX: I10 Essential (primary) hypertension (principal); E78.5 Hyperlipidemia, unspecified; E11.9 Type 2 diabetes mellitus without complications; R53.83 Other fatigue
CPT/HCPCS: 36415; 80053; 80061; 83036; 83721; 84443; 85025

== ENCOUNTER 2022-10-05 11:05 | Emergency (ER) | payer MEDICARE, OTHER ==
[2022-10-05 11:29] LABS: BILIRUBIN,URINE NEGATIVE (NEGATIVE); GLUCOSE, URINE (UA) NEGATIVE (NEGATIVE); KETONES,URINE (UA) NEGATIVE (NEGATIVE); LEUKOCYTE ESTERASE, URINE SMALL (NEGATIVE); NITRITE,URINE NEGATIVE (NEGATIVE); OCCULT BLOOD,URINE NEGATIVE (NEGATIVE); PROTEIN,URINE NEGATIVE (NEGATIVE); UROBILINOGEN,URINE 0.2 (NORMAL) E.U./dL (NORMAL)
[2022-10-05 11:31] LABS: BASOPHILS % (AUTO) 0.8 %; EOSINOPHILS # (AUTO) 0.2 10^3/uL (0.0-0.7); EOSINOPHILS % (AUTO) 3.3 %; HGB - HEMOGLOBIN 13.9 g/dL (12.0-16.0); LYMPHOCYTES # (AUTO) 1.8 10^3/uL (1.5-3.5); LYMPHOCYTES % (AUTO) 34.3 %; MEAN CORPUSCULAR HEMOGLOBIN 31.2 pg (27.0-31.0); MEAN CORPUSCULAR HGB CONC 32.3 g/dL (32.0-36.0); MEAN CORPUSCULAR VOLUME 96.6 fL (81.0-99.0); MEAN PLATELET VOLUME 10.3 fL (7.9-10.8); MONOCYTES # (AUTO) 0.4 10^3/uL (0.0-1.0); MONOCYTES % (AUTO) 7.7 %; NEUTROPHILS # (AUTO) 2.8 10^3/uL (1.5-6.6); NEUTROPHILS % (AUTO) 53.7 %; PLT - PLATELET COUNT 246 10^3/uL (130-450); RED BLOOD COUNT 4.45 10^6/uL (4.20-5.40); RED CELL DISTRIBUTION WIDTH 13.2 % (12.0-15.0); WHITE BLOOD COUNT 5.2 x10^3/uL (4.8-10.8)
[2022-10-05 11:41] LABS: CLARITY,URINE CLEAR (CLEAR); RBC,URINE 0-5 /HPF (0-5)
[2022-10-05 11:42] LABS: BACTERIA,URINE Rare /HPF (None Seen); EPITHELIAL CELLS,UR FEW Transitional /HPF (<= Few); SQUAMOUS EPITHELIAL CELL,UR FEW Squamous (<= Few)
[2022-10-05 11:45] LABS: ALBUMIN 4.6 g/dL (3.2-5.5); ALBUMIN/GLOBULIN RATIO 1.6 (1.0-2.2); BILIRUBIN,TOTAL 0.9 mg/dL (0.2-1.0); CALCIUM 9.4 mg/dL (8.5-10.3); CREATININE 0.8 mg/dL (0.4-1.0); POTASSIUM 3.9 mmol/L (3.5-5.0); TOTAL PROTEIN 7.5 g/dL (6.7-8.2)
--- NOTE | 2022-10-05 11:53 | ED Physician Documentation ---
PD HPI ABD PAIN - Stated complaint Stated Complaint: FEMALE GI/ LOWER ABD PX - Chief complaint Chief Complaint: Abd Pain - Additional information Additional information: This is a very nice 77-year-old female who has a history of appendectomy and cholecystectomy who presents with left-sided abdominal pain. Symptoms have been intermittent over the course of the last week or so. Patient states that she had changed her diet from a normally quite healthy and fruit and vegetable heavy diet to more processed foods and other foods that she does not normally eat recently due to travel and also her being out of town. She then devel oped constipation and had about a 5-day period where she could not have a bowel movement, she took stool softeners and then subsequently laxatives and was able to have a bowel movement that was normal for her today. The pain has actually improved somewhat since then but she does still have some left-sided abdominal pain more in the left upper quadrant. She has not had a fever or chills, no chest pain or difficulty breathing, no vomiting, no diarrhea, no dysuria urgency or frequency. She has no flank pain. Other than the stool medication, she has not attempted anything for her symptoms. She Has mild nausea at times butis tolerating p.o. 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[employer] MACHINE: None : None HEENT: None Psych: None Musculoskeletal: Osteoarthritis, Fibromyalgia, Other Derm: None - Past Surgical History Past Surgical History: Yes General: Appendectomy, Colonoscopy, EGD Ortho: Shoulder arthroplasty, Other /WELDER 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 [employer]LECT[employer] MACHINE: Dilation and currettage HEENT: Tonsil/Adenoidectomy - Present Medications Home Medications: Ambulatory Orders Medication Instructions Recorded Confirmed Amitriptyline [Elavil] 25 mg PO QPM 02/26/14 01/23/22 Metoprolol Tartrate 50 mg PO BID 02/26/14 01/23/22 Simvastatin [Zocor] 40 mg PO DAILY 02/26/14 01/23/22 hydroCHLOROthiazide [Hydrodiuril] 50 mg PO DAILY 12/07/15 01/23/22 Cholecalciferol (Vitamin D3) 1 tab PO DAILY 11/12/20 01/23/22 [Vitamin D3] Cyclobenzaprine [Flexeril] 10 mg PO Q6HR PRN 11/12/20 01/23/22 Multivitamin 1 tab PO DAILY 11/12/20 01/23/22 Omeprazole Magnesium 20 mg PO BID 06/11/21 01/23/22 Nitrofurantoin [Macrobid] 100 mg PO BID #10 cap 10/05/22 - Allergies Allergies/Adverse Reactions: Allergies Allergy/AdvReac Type Severity Reaction Status Date / Time gluten Allergy Cramps Verified 01/23/22 13:01 morphine Allergy Emesis Verified 01/23/22 13:01 - Social History Does the pt smoke?: No Smoking Status: Never smoker Does the pt drink ETOH?: Yes Does the pt have substance abuse?: No - Immunizations Immunizations are current?: Yes Immunizations: TDAP current <10years - POLST Patient has POLST: No PD ED PE NORMAL - Vitals Vital signs reviewed: Yes - General General: Alert and oriented X 3, No acute distress, Well developed/nourished - HEENT HEENT: Atraumatic, Pharynx benign - Cardiac Cardiac: RRR, No murmur, No gallop, No rub - Respiratory Respiratory: No respiratory distress, Clear bilaterally - Abdomen Abdomen: Normal bowel sounds, Soft, Non tender, Non distended, No organomegaly, Other (No pain reproduced on exam today) - Back Back: No CVA TTP, No spinal TTP - Derm Derm: Normal color, Warm and dry, No rash - Neuro Neuro: Alert and oriented X 3 Eye Opening: Spontaneous Motor: Obeys Commands Verbal: Oriented GCS Score: 15 - Psych Psych: Normal mood, Normal affect Results - Vitals Vitals: Vital Signs - 24 hr 10/05/22 10/05/22 11:14 12:56 Temperature 37.3 C Heart Rate 64 57 L Respiratory 20 16 Rate Blood Pressure 153/73 H 154/95 H O2 Saturation 98 98 Oxygen O2 Source Room air - Labs Labs: Laboratory Tests 10/05/22 10/05/22 10/05/22 11:18 11:26 11:26 WBC 5.2 RBC 4.45 Hgb 13.9 Hct 43.0 MCV 96.6 MCH 31.2 H MCHC 32.3 RDW 13.2 Plt Count 246 MPV 10.3 Neut # (Auto) 2.8 Lymph # (Auto) 1.8 [place] # (Auto) 0.4 Eos # (Auto) 0.2 Baso # (Auto) 0.0 Absolute Nucleated RBC 0.00 Nucleated RBC % 0.0 Sodium 142 Potassium 3.9 Chloride 102 Carbon Dioxide 31 Anion Gap 9.0 BUN 21 H Creatinine 0.8 Estimated GFR (MDRD) 70 L Glucose 121 H Calcium 9.4 Total Bilirubin 0.9 AST 22 ALT 22 Alkaline Phosphatase 45 Total Protein 7.5 Albumin 4.6 Globulin 2.9 Albumin/Globulin Ratio 1.6 Lipase 35 Urine Color YELLOW Urine Clarity CLEAR Urine pH 7.0 Ur Specific [employer] 1.010 Urine Protein NEGATIVE Urine Glucose (UA) NEGATIVE Urine Ketones NEGATIVE Urine Occult Blood NEGATIVE Urine Nitrite NEGATIVE Urine Bilirubin NEGATIVE Urine Urobilinogen 0.2 (NORMAL) Ur Leukocyte Esterase SMALL H Urine RBC 0-5 Urine WBC 6-10 H Ur Epithelial Cells FEW Transitional Ur Squamous Epith Cells FEW Squamous Urine Bacteria Rare Ur Microscopic Review INDICATED Urine Culture Comments INDICATED - Rads (name of study) No standard instances Relevant Findings:: Final report received PD Medical Decision Making - ED course Complexity details: reviewed results, re-evaluated patient, considered differential, d/w patient ED course: 77-year-old female presents with leftSided abdominal pain as described in HPI. She is very well-appearing on physical exam, nontoxic and in no acute distress with stable vital signs. Differentials considered included constipation, bowel obstruction, diverticulitis, irritable bowel, gas pains. The patient has already had a cholecystectomy and appendectomy and she had no signs of surgical abdomen.We did obtain labs which are reassuring, she is a essentially normal CBC, no leukocytosis, she is stable chemistry. Urinalysis is suggestive of possible infection though patient has no dysuria urgency or frequency. Given her abdominal pain however I am going to treat this with Macrobid pending culture. Did obtain a abdominal x-ray and this was negative. At this time as patient's physical exam is reassuring, pain was not reproduced On exam, and her labs are stable, I do not think we need to proceed with CT scan however patient was given strict return precautions if she were to develop a fever, increasing pain, vomiting or other new concerns.Patient was agreeable and was discharged home in stable condition. Departure - Departure Disposition: 01 Home, Self Care Clinical Impression: Left upper quadrant abdominal pain Urinary tract infection Qualifiers: Urinary tract infection type: acute cystitis Hematuria presence: without hematuria Qualified Code(s): N30.00 - Acute cystitis without hematuria Condition: Good Instructions: Abdominal Pain, ED UTI Cystitis Female Prescriptions: Nitrofurantoin [Macrobid] 100 mg PO BID #10 cap Comments: Your physical exam, labs and x-ray were reassuring today. You do have signs of a possible urinary tract infection therefore I have ordered Macrobid which is an antibiotic that you will take for the next 5 days. I always recommend taking probiotics or yogurt while on antibiotics. You can also continue the stool softeners and get back on your regular diet to help with your abdominal pain. If you develop a fever, increasing pain, vomiting or other new concerns, please return to the ER. Discharge Date/Time: 10/05/22 13:06
[2022-10-05 12:57] VITALS: BP 154/95
--- NOTE | 2022-10-05 13:07 | XRAY Report ---
PROCEDURE: Abdomen Acute INDICATIONS: constipation TECHNIQUE: 2 views of the abdomen were acquired. COMPARISON: None. FINDINGS: Surgical changes and devices: Cholecystectomy. Chest: Lungs are clear. Heart size is normal. No pleural effusions. No pneumoperitoneum. Bowel: No pneumoperitoneum. The bowel gas pattern is normal. Stool load within normal limits. Soft tissues: No masses; visualized solid organ contours appear normal in size. No suspicious abdom inal calcifications. Bones: No suspicious bony abnormalities. IMPRESSION: No acute abdominal or chest pathology. Stool load is within normal limits. Reviewed by: Christofer Ramirez on 10/05/2022 12:06 PM YOU[facility] Approved by: Christofer Ramirez on 10/05/2022 12:06 PM YOUS[facility] Station ID: [id number]
== END 2022-10-05 13:06 | disposition home or self-care (01) ==
LOC: ED 11:05
DX: N30.00 Acute cystitis without hematuria (principal); R10.12 Left upper quadrant pain; I10 Essential (primary) hypertension
CPT/HCPCS: 36415; 80053; 81001; 81003; 83690; 85025; 87086; 99284

== ENCOUNTER 2023-03-07 12:46 | Outpatient (CLI) | payer MEDICARE, OTHER ==
[2023-03-07 18:10] LABS: CALCIUM 9.9 mg/dL (8.5-10.3); CREATININE 0.8 mg/dL (0.6-1.3); POTASSIUM 4.4 mmol/L (3.5-4.5)
[2023-03-07 20:00] LABS: ESTIMATED AVERAGE GLUCOSE 120 mg/dL (70-100); HEMOGLOBIN A1c% 5.8 % (4.27-6.07)
== END 2023-03-07 12:47 | disposition home or self-care (01) ==
LOC: LAB.N 12:46
PROVIDERS: ATTEND Nurse Practitioner Family
DX: E11.9 Type 2 diabetes mellitus without complications (principal)
CPT/HCPCS: 36415; 80048; 83036

== ENCOUNTER 2023-05-19 14:45 | Outpatient (CLI) | payer MEDICARE, OTHER ==
--- NOTE | 2023-05-19 16:56 | XRAY Report ---
PROCEDURE: Lumbar Spine 4V INDICATIONS: LOW BACK PAIN TECHNIQUE: 3 views of the lumbar spine were acquired. COMPARISON: None. FINDINGS: Bones: 5 [id number] vertebrae are present. There is trace retrolisthesis of L1 on L2, L2 on L3 , L3 on L4, trace anterolisthesis of L5 on S1, L4 on L5. Multilevel disc and foraminal narrowing are present most notable at L4-5 and L5-S1. No vertebral body compression fractures. No suspicious bony lesions. Soft tissues: Overlying bowel gas pattern is normal. No suspicious soft tissue calcifications. IMPRESSION: No visualized acute fracture or dislocation. However, occult injury cannot be excluded. Recommend denisse rt interval imaging follow-up in 7-10 days as clinically indicated for additional evaluation. Multilevel degenerative changes. Reviewed by: Evon Stein MD on 05/19/2023 4:54 PM PST Approved by: Evon Stein MD on 05/19/2023 4:54 PM PST Station ID: [id number]
== END 2023-05-19 15:00 | disposition home or self-care (01) ==
LOC: DI.N 14:45
PROVIDERS: ATTEND Physician Assistant Medical
DX: M47.816 Spondylosis without myelopathy or radiculopathy, lumbar region (principal); M47.817 Spondylosis without myelopathy or radiculopathy, lumbosacral region; M43.16 Spondylolisthesis, lumbar region; M43.17 Spondylolisthesis, lumbosacral region; R35.0 Frequency of micturition
CPT/HCPCS: 87077; 87086

== ENCOUNTER 2023-05-19 15:00 | Outpatient (CLI) | payer MEDICARE, OTHER | END 2023-05-19 15:15 | disposition home or self-care (01) | LOC: LAB.N 15:00 | PROVIDERS: ATTEND Physician Assistant Medical | DX: R35.0 Frequency of micturition (principal) | CPT/HCPCS: 87077; 87086 ==

== ENCOUNTER 2023-05-25 08:00 | Outpatient (CLI) | payer MEDICARE, OTHER | END 2023-05-25 23:59 | disposition home or self-care (01) | LOC: LAB.N 08:00 | PROVIDERS: ATTEND Family Medicine | DX: R35.0 Frequency of micturition (principal) | CPT/HCPCS: 87086 ==

== ENCOUNTER 2023-06-15 15:52 | Outpatient (CLI) | payer MEDICARE, OTHER ==
[2023-06-15 17:36] LABS: BASOPHILS % (AUTO) 0.6 %; EOSINOPHILS # (AUTO) 0.2 10^3/uL (0.0-0.7); EOSINOPHILS % (AUTO) 2.7 %; HCT - HEMATOCRIT 40.3 % (37.0-47.0); HGB - HEMOGLOBIN 12.7 g/dL (12.0-16.0); LYMPHOCYTES # (AUTO) 1.8 10^3/uL (1.5-3.5); LYMPHOCYTES % (AUTO) 28.5 %; MEAN CORPUSCULAR HEMOGLOBIN 30.9 pg (27.0-31.0); MEAN CORPUSCULAR HGB CONC 31.5 g/dL (32.0-36.0); MEAN CORPUSCULAR VOLUME 98.1 fL (81.0-99.0); MEAN PLATELET VOLUME 11.3 fL (7.9-10.8); MONOCYTES # (AUTO) 0.6 10^3/uL (0.0-1.0); MONOCYTES % (AUTO) 9.1 %; NEUTROPHILS # (AUTO) 3.7 10^3/uL (1.5-6.6); NEUTROPHILS % (AUTO) 58.9 %; PLT - PLATELET COUNT 242 10^3/uL (130-450); RED BLOOD COUNT 4.11 10^6/uL (4.20-5.40); WHITE BLOOD COUNT 6.3 x10^3/uL (4.8-10.8)
[2023-06-15 18:20] LABS: FERRITIN 126.4 ng/mL (11.0-306.8)
[2023-06-15 19:41] LABS: BACTERIAL VAGINOSIS DNA NEGATIVE (NEGATIVE); CANDIDA GLABRATA DNA NEGATIVE (NEGATIVE); CANDIDA GROUP DNA NEGATIVE (NEGATIVE); CANDIDA KRUSEI DNA NEGATIVE (NEGATIVE); TRICHOMONAS VAGINALIS DNA NEGATIVE (NEGATIVE)
[2023-06-15 20:54] LABS: CHLAMYDIA TRACHOMATIS DNA NEGATIVE (NEGATIVE); NEISSERIA GONORRHOEAE DNA NEGATIVE (NEGATIVE)
== END 2023-06-15 15:53 | disposition home or self-care (01) ==
LOC: LAB.N 15:52
PROVIDERS: ATTEND Nurse Practitioner Family
DX: K21.9 Gastro-esophageal reflux disease without esophagitis (principal); N89.8 Other specified noninflammatory disorders of vagina; R10.84 Generalized abdominal pain; R53.82 Chronic fatigue, unspecified
CPT/HCPCS: 36415; 81514; 82607; 82728; 82746; 83540; 84466; 85025; 87491; 87591; 87661

== ENCOUNTER 2023-09-25 12:16 | Outpatient (CLI) | payer MEDICARE, OTHER ==
--- NOTE | 2023-09-26 08:55 | Mammography Report ---
BILATERAL DIGITAL DIAGNOSTIC MAMMOGRAM 3D/2D: 09/25/2023 CLINICAL: Diffuse right breast pain. Due for bilateral exam. Comparison is made to exams dated: 06/09/2022 mammogram, 03/03/2021 mammogram, 03/09/2020 mammogram, 11/17/2016 mammogram, 04/03/2018 mammogram, and 03/16/2015 mammogram - [facility]. There are scattered areas of fibroglandular density in both breasts (category b / 25%-50% glandular t issue). No significant masses, calcifications, or other findings are seen in either breast. IMPRESSION: NEGATIVE There is no abnormality seen in the right breast to correspond with the diffuse pain in the lower out er quadrant. Patient does not report symptoms today. Recommend clinical evaluation. There is no mammographic evidence of malignancy. A 1 year screening mammogram is recommended. Based on the Tyrer Cuzick model (a risk assessment model) the patient's lifetime risk is 10.6% and he r 10 year risk is 0.0%. According to the ACR, ACS, and NCCN guidelines, an annual breast MRI exam arcadio ng with mammogram is recommended if the patient's lifetime risk is 20% or greater. This exam was interpreted at Station ID: [id number]. NOTE: For mammograms, a report in lay terms will be sent to the patient. Approximately 15% of breast malignancies will not be visualized mammographically. In the management of a palpable breast mass, a negative mammogram must not discourage biopsy of a clinically suspicious lesion. Electronically Signed By: Kvng Gonzalez M.D. lc/:09/25/2023 13:22:29 letter sent: No_Letter ACR BI-RADS Category 1: Negative 3341F PARENCHYMAL PATTERN: (A) - The breast(s) demonstrate(s) scattered fibroglandular densities. BI-RADS CATEGORY: (1) - 1 RECOMMENDATION: (ANNUAL) - Recommend routine annual screening mammography. [id number] 1 year screening LATERALITY: (B)
== END 2023-09-25 12:17 | disposition home or self-care (01) ==
LOC: DI 12:16
PROVIDERS: ATTEND Nurse Practitioner Family
DX: N64.4 Mastodynia (principal); R92.323 Mammographic fibroglandular density, bilateral breasts